=== PATIENT | female | born 1955 | race Caucasian/White ===

== ENCOUNTER 2019-10-25 08:11 | Emergency (ER) | payer BC, SELFPAY ==
[2019-10-25 08:15] VITALS: BP 106/31; PULSE 74; RESP 18; TEMP 37.1; O2SAT 98
--- NOTE | 2019-10-25 08:25 | ED.GENADUL_ITS ---
Discharge Plan Disposition Patient Disposition: HOME Condition: Stable Discharge Details Chief Complaint: Headache Clinical Impression: Sinusitis Primary Care Provider: Erica Chappell ED Provider: Robert Gallegos Home Meds and New Rx's Prescriptions: New doxycycline hyclate 100 mg tablet 100 mg PO BID Qty: 14 RF: 0 Continued mometasone [Nasonex] 17 GM spray,non-aerosol 2 spry Inhalation DAILY RF: 0 citalopram 40 MG tablet 40 mg PO DAILY RF: 0 simvastatin 20 MG tablet 2 tab PO QPM RF: 0 cimetidine 800 MG tablet 800 mg PO DAILY RF: 0 polyethylene glycol (bulk) [Polyox WSR-301] 1 GM powder 1 gm PO PRN PRNRF: 0 Vitamin B-2 25 MG tablet 2 tab PO BID RF: 0 cholecalciferol (vitamin D3) 1,000 UNITS tablet 1 tab PO DAILY RF: 0 Symbicort 60 PUFF HFA aerosol inhaler 1 inh Inhalation DAILY RF: 0 Discharge Instructions Instructions: Sinusitis (ED) Additional Instructions: take 1000mg tylenol and 600mg ibuprofen every 6 hours for pain as needed try using a netti pot if no improvement by Thursday start the antibiotic if not better within a week see your primary care provider. If you feel more ill or have severe worsening pain return to the emergency department Medical Decision Making 64 yo female with hx of hld, asthma, who comes in with cc of facial pressure and cough for 5 days. Denies fevers, chills, vomit, rashes. Has pain with percussion over maxillary sinusies, CN II-XII are intact and normal tm's and oropharynx with no restricted neck movements and clear lung sounds. Suspect uri vs sinusitis. Given less than 10 days of symptoms advised her abxx not indicated but will provide her with script to fill only if not improved by Thursday. If not improving after this advised to see pcp and return precautions given Differential Diagnosis Differential Diagnosis: sinusitis, uri, allergies HPI General Mode of arrival: ambulatory . Date/Time Provider Initiated Documentation: 10/25/19 08:13 . Limitations to Documentation: no limitations . Information obtained by: patient . History of Present Illness 64 year old F presents to the emergency department with the chief complaint of face pressure, described as moderate, and is localized to the face. Patient reports no radiation. Patient started experiencing this day(s) (5) and it has been constant. No relieving factors improve symptom(s), No exacerbating factors reported . Patient notes no other symptoms.. Related Data Home Medications Medication Instructions Recorded Confirmed cimetidine 800 mg PO DAILY 04/16/13 10/25/19 citalopram 40 mg PO DAILY 04/16/13 10/25/19 mometasone [Nasonex] 2 spry INHALATION DAILY 04/16/13 11/04/15 polyethylene glycol (bulk) [Polyox 1 gm PO PRN PRN 04/16/13 11/04/15 WSR-301] simvastatin 2 tab PO QPM 04/16/13 10/25/19 Vitamin B-2 2 tab PO BID 10/13/14 10/25/19 cholecalciferol (vitamin D3) 1 tab PO DAILY 10/13/14 10/25/19 Symbicort 1 inh INHALATION DAILY 11/04/15 10/25/19 doxycycline hyclate 100 mg PO BID #14 tab 10/25/19 Previous Rx's Medication Instructions Recorded doxycycline hyclate 100 mg PO BID #14 tab 10/25/19 Allergies Allergy/AdvReac Type Severity Reaction Status Date / Time amoxicillin [Amoxicillin] Allergy Intermediate Hives Unverified 10/25/19 08:18 General Stated Complaint: Headache LIZZY: 4 Review of Systems All systems reviewed & are unremarkable except as noted in HPI and below Constitutional Constitutional: Denies chills, Denies fever(s) and Denies weakness Cardiovascular Cardiovascular: Denies chest pain and Denies dyspnea Respiratory Respiratory: Denies cough and Denies dyspnea Gastrointestinal Gastrointestinal: Denies abdominal pain, Denies nausea and Denies vomiting Musculoskeletal Musculoskeletal: Denies joint swelling Integumentary/Breasts Skin/Breast: Denies rash Neurologic Neurologic: Denies weakness [facility] Social History Smoking/Tobacco Use Status: Never Drug use: Never Do you feel safe at home: Yes Do you feel safe in your relationship?: Yes Exam Const General: no acute distress Orientation: alert HENMT Head: normal to inspection Ears: external ears normal General nose exam: external nose normal Mouth: moist mucous membranes Eyes General: appearance normal, both eyes and all related structures Neck Neck: normal visual inspection Resp Effort & Inspection: normal respiratory effort and able to speak in complete sentences Cardio Rate: regular rate Skin General skin exam: no rashes or lesions noted Neuro General: alert and oriented x3 Extrem General: normal to inspection Psych Mental Status: mental status grossly normal Course Vital Signs Vital signs: Vital Signs Temperature 37.1 C 10/25/19 08:15 Pulse 74 10/25/19 08:15 Respiratory Rate 18 10/25/19 08:15 Blood Pressure 106/31 L 10/25/19 08:15 Pulse Oximetry 98 10/25/19 08:15 Temperature 37.1 C 10/25/19 08:15 Temperature Source Oral 10/25/19 08:15 Pulse 74 10/25/19 08:15 Respiratory Rate 18 10/25/19 08:15 Respiratory Effort 10/25/19 08:19 Blood Pressure 106/31 L 10/25/19 08:15 Blood Pressure Position Sitting 10/25/19 08:15 Pulse Oximetry 98 10/25/19 08:15 Oxygen Delivery Method Room Air 10/25/19 08:15 Oxygen Flow Rate 0 10/25/19 08:15 Pain Level 7 10/25/19 08:15
[2019-10-25] MEDS: Ibuprofen 600 MG TAB PO (08:33)
== END 2019-10-25 08:34 | disposition home or self-care (01) ==
PROVIDERS: Emergency Provider Emergency Medicine; PCP Internal Medicine
DX: J01.00 Acute maxillary sinusitis, unspecified (principal); R05 Cough
CPT/HCPCS: 99283

== ENCOUNTER 2020-08-20 13:13 | Outpatient (CLI) | payer BC, SELFPAY ==
[2020-08-22 20:54] LABS: Patient Race White; SARS-CoV-2 RNA Undetected (Undetected); SARS-CoV-2 Specimen Source Nasal
== END 2020-08-20 13:33 ==
PROVIDERS: PCP Internal Medicine; Visit Provider Internal Medicine
DX: R05 Cough (principal); R50.9 Fever, unspecified; J02.9 Acute pharyngitis, unspecified; R09.81 Nasal congestion
CPT/HCPCS: U0003

== ENCOUNTER 2020-12-13 06:14 | Inpatient (IN) | payer BC, SELFPAY ==
[2020-12-13] VITALS (22 sets, daily range): BP systolic 120–146; BP diastolic 55–101; PULSE 67–78; RESP 16–18; TEMP 36.1–36.6; O2SAT 87–97
--- NOTE | 2020-12-13 06:06 | ED.GENADUL_ITS ---
Discharge Plan Disposition Patient Disposition: [facility] INPATIENT Condition: Stable Discharge Details Clinical Impression: SBO (small bowel obstruction) Primary Care Provider: Erica Chappell ED Provider: Willie Delong Home Meds and New Rx's Prescriptions: No Action mometasone [Nasonex] 17 GM spray,non-aerosol 2 spry Inhalation DAILY RF: 0 citalopram 40 MG tablet 40 mg PO DAILY RF: 0 simvastatin 20 MG tablet 2 tab PO QPM RF: 0 cimetidine 800 MG tablet 800 mg PO DAILY RF: 0 Vitamin B-2 25 MG tablet 2 tab PO BID RF: 0 Medical Decision Making <Davon Nails MD - Last Filed: 12/13/20 07:52> Patient presenting with onset of lower abdominal pain with associated nausea and vomiting this morning. No previous surgeries on her abdomen. Appears to be very uncomfortable. Is tender across lower abdomen but does not have guarding or rebound present. Denies urinary symptoms. IV established and fluids started. Morphine and Zofran given for symptoms. Laboratory studies sent. CT scan of abdomen pelvis ordered. Broad differential for undifferentiated lower abdominal pain middle-aged female including diverticulitis, colitis, volvulus, bowel obstruction, AAA. 07:20 - Patient's laboratory studies are unremarkable. White count normal. Lactic acid normal. Chemistries and LFTs normal. Lipase normal. Urinalysis negative. CT scan pending. 07:45 - CT scan shows small bowel obstruction likely related to adhesions but since no previous surgery consider stricture. Page placed to surgery for admission. NG tube will be placed for patient comfort. Message left for kenyetta nance to give update. Care turned over to oncoming physician, Dr. Delong. Lab Data Lab results reviewed: Yes I reviewed the patient's lab results. <Willie Delong MD - Last Filed: 12/13/20 08:55> Care signed out by Dr. Nails with plan to admit to general surgery. Spoke with Dr. Alvarez, discussed ED present and course. He will admit patient and requests bridging orders be placed to floor - IVF and NG to continous suction. HPI <Davon Nails MD - Last Filed: 12/13/20 07:52> General Mode of arrival: EMS . Date/Time Provider Initiated Documentation: 12/13/20 06:32 . Limitations to Documentation: no limitations . Information obtained by: patient, EMS, RN notes reviewed and old records reviewed . HPI Narrative: Patient presents to the ED by ambulance with onset of lower abdominal pain at about 4 AM. She felt fine last night when she went to bed. She had corn beef and cabbage for dinner. Subsequently woke up this senior svp with pain which is described as constant pressure in her lower abdomen. She has had nausea and at least one episode of vomiting. She has mild chronic low back pain which is unchanged. She denies fever, cough, shortness of breath, chest pain. She has had no difficulty urinating this morning. She has had no diarrhea or at this point. She has no prior surgeries on her abdomen. She arrives very uncomfortable holding her abdomen. Related Data Home Medications Medication Instructions Recorded Confirmed cimetidine 800 mg PO DAILY 04/16/13 10/25/19 citalopram 40 mg PO DAILY 04/16/13 12/13/20 mometasone [Nasonex] 2 spry INHALATION DAILY 04/16/13 12/13/20 simvastatin 2 tab PO QPM 04/16/13 12/13/20 Vitamin B-2 2 tab PO BID 10/13/14 12/13/20 Allergies Allergy/AdvReac Type Severity Reaction Status Date / Time amoxicillin [Amoxicillin] Allergy Intermediate Hives Unverified 10/25/19 08:18 General LIZZY: 4 Review of Systems <Davon Nails MD - Last Filed: 12/13/20 07:52> Narrative: 07/11 Review of Systems completed and is negative except as stated above in HPI (Systems reviewed: Const, Eyes, ENT, Resp, CV, GI, , MSK, Skin, Neuro) PFSH <Davon Nails MD - Last Filed: 12/13/20 07:52> Medical History Anxiety Asthma GERD (gastroesophageal reflux disease) Hypercholesterolemia Surgical History History of surgical procedure sinus surgery wrist surgery Social History Smoking/Tobacco Use Status: Never Smoking risk assessment performed?: Yes Alcohol Intake: never Drug use: Never Substance use type: does not use Do you feel safe at home: Yes Do you feel safe in your relationship?: Yes Exam <Davon Nails MD - Last Filed: 12/13/20 07:52> Narrative Exam Narrative: Const: WDWN female holding lower abdomen. HEENT: NC/AT. Normal facial exam. Eyes: Normal conjunctiva and sclera. Neck: Supple. Trachea midline. Lungs: Normal respiratory effort. Lungs are clear. Cor: RRR without murmur/gallop. Good radial pulses. GI: Soft/ND. Tender to palpation across the lower abdomen but no guarding or rebound. Neuro: A+O x 3. Normal speech, mentation, gait. Cranial nerves II - XII grossly intact. No gross motor or sensory deficit. Ext: No C/C/E. Skin: Warm and dry without rash. Sign Out <Davon Nails MD - Last Filed: 12/13/20 07:52> Sign Out Data: Sign Out Comment: Signed out to oncoming physician, Dr. Delong, who will discuss with surgery for admission. Last updated by Davon Nails MD at 12/13/20 07:53
[2020-12-13 06:36] LABS: Bilirubin Negative (Negative); Blood Negative (Negative); Clarity Sl Cloudy (Clear); Glucose Negative (Negative); Ketones Negative (Negative); Leukocyte Esterase Negative (Negative); Nitrite Negative (Negative); Specific Gravity 1.025 (1.005-1.025); Urobilinogen 0.2 EU/dL (Up TO 0.2); pH 8.5 (5-8)
[2020-12-13] MEDS: Ondansetron 4 MG/2 ML VIAL IVP ×2 (06:41→17:22)
[2020-12-13] MEDS: MORPHine 10 MG/ML VIAL 4 MG IVP (06:41)
[2020-12-13 06:42] LABS: Lactate 1.3 mmol/L (0.6-1.4)
[2020-12-13 06:43] LABS: Abs Immature Grans 0.05 10^3/uL (0.0-0.06); Absolute Basophil Count 0.06 10^3/uL (0.0-0.2); Absolute Eosinophil Count 0.35 10^3/uL (0.0-0.7); Absolute Neutrophil Count 5.08 10^3/uL (1.2-6.7); Basophils % 0.9; HCT 37.7 % (36.0-46.0); HGB 12.5 g/dL (11.2-15.7); Immature Grans % 0.7; Lymphocytes % 14.4; MCH 31.1 pg (27.0-33.0); MCHC 33.2 % (32.0-36.0); MCV 93.8 fL (80-95); MPV 9.9 fL (8.0-11.0); Monocytes % 5.8; Neutrophils % 73.2; Nucleated RBC 0 %; Platelet Count 239 10^3/uL (130-400); RBC 4.02 10^6/uL (3.93-5.22); RDW 12.3 % (11.7-14.6); RDW-SD 42.9 fL; WBC 6.94 10^3/uL (4.4-10.8)
[2020-12-13] MEDS: Lactated Ringers 1,000 ML 1000 ML IV (06:48)
[2020-12-13 06:54] LABS: Lipase 148 U/L (73-393); Magnesium 2.2 mg/dL (1.8-2.4)
[2020-12-13 06:59] LABS: ALT 24 U/L (14-59); AST 24 U/L (15-37); Albumin 3.9 g/dL (3.4-5.0); Alkaline Phosphatase 82 U/L (46-116); BUN 23 mg/dL (7-18); Bilirubin, Total 0.5 mg/dL (0.2-1.0); CREATININE 0.9 mg/dL (0.55-1.02); Calcium 9.3 mg/dL (8.5-10.1); Chloride 105 mmol/L (98-107); Glucose 133 mg/dL (74-106); Potassium 3.8 mmol/L (3.5-5.1); Sodium 140 mmol/L (136-145); Total Protein 7.5 g/dL (6.4-8.2)
[2020-12-13] MEDS: Omnipaque 350 MG/ML 100 ML BTL IJ (07:06)
[2020-12-13] MEDS: Normal Saline Flush 10 ML SYR IVP ×4 (07:07→17:22)
[2020-12-13] MEDS: Normal Saline - Diluent 50 ML VIAL IV (07:07)
--- NOTE | 2020-12-13 07:16 | DI.CT_ITS ---
EXAM: CT ABDOMEN PELVIS W CLINICAL HISTORY: low abd pain/vomiting. TECHNIQUE: Imaging Protocol: Axial computed tomography images with coronal and sagittal reformatted images were created and reviewed CONTRAST MATERIAL: Intravenous: Omnipaque 100cc Oral: None COMPARISON: No exams were available for comparison FINDINGS: VISUALIZED LUNG BASES: No nodules nor pleural effusions evident. Large hiatal hernia noted ABDOMEN: There is no ascites. LIVER: There are no obvious focal hepatic lesions evident . GALLBLADDER/BILIARY: No obvious gallbladder pathology. CBD is not dilated. PANCREAS: No evidence of pancreatic mass nor dilatation of the pancreatic duct. SPLEEN: Spleen is not enlarged. No obvious intrasplenic lesions. Splenic and portal veins are paten t. ADRENALS: There are no significant adrenal masses. KIDNEYS:There is a cyst in the lateral cortex of the left kidney which measures 10 x 11 millimeters.. No other focal renal findings. No hydronephrosis. No hydroureter. . ABDOMINAL AORTA: Abdominal aorta is not enlarged. LYMPH NODES:There is no retroperitineal nor paraaortic adenopathy. ABDOMINAL WALL/GI: No evidence of significant anterior abdominal wall hernia. There are multiple abnormal dilated small bowel loops ranging up to 3 cm diameter.. The colon is mos tly collapsed. Distal small bowel loops appear collapsed. The transition point appears to be at the terminal ileum level. This is best seen on the coronal images. PELVIS: GI: No evidence of appendicitis.No evidence of sigmoid diverticulitis. LYMPH NODES: There is no intrapelvic nor inguinal adenopathy. REPRODUCTIVE: Age-appropriate URINARY BLADDER: No calculi nor obvious masses evident OSSEOUS: No significant osseous lesions. Mild degenerative anterolisthesis of L5 upon S1. IMPRESSION: 1. There is a small bowel obstruction. The transition point appears to be at the level of the termin al ileum. Stricture versus adhesion. Colon is collapsed. Prominent hiatal hernia noted. 2. Small benign cysts left kidney. No other focal renal findings. 4. RADIATION DOSE DELIVERED: 877.68mGy.cm Total DLP DATA REPOSITORY: All CT scans at this facility are submitted to the National Radiology Data Registry (NRDR) Dose Index Registry (DIR) with the [employer] (ACR). RADIATION OPTIMIZATION: All CT scans at this facility use at least one of these dose optimization te chniques: automated exposure control; mA and/or kV adjustment per patient size (includes targeted exa ms where dose is matched to clinical indication); or iterative reconstruction.
--- NOTE | 2020-12-13 07:31 | DI.VRAD_ITS ---
PROCEDURE INFORMATION: Exam: CT Abdomen And Pelvis With Contrast Exam date and time: 12/13/2020 7:14 AM Age: 65 years old Clinical indication: Abdominal pain; Localized; Lower; Patient HX: Low abdomen pain/vomiting TECHNIQUE: Imaging protocol: Computed tomography of the abdomen and pelvis with contrast. Radiation optimization: All CT scans at this facility use at least one of these dose optimization techniques: automated exposure control; mA and/or kV adjustment per patient size (includes targeted exams where dose is matched to clinical indication); or iterative reconstruction. COMPARISON: No relevant prior studies available. FINDINGS: Mediastinal space: Moderate hiatal hernia. Liver: Normal. No mass. Gallbladder and bile ducts: Normal. No calcified stones. No ductal dilation. Pancreas: Normal. No ductal dilation. Spleen: Normal. No splenomegaly. Adrenal glands: Normal. No mass. 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 Stomach and bowel: Dilated loops of proximal small bowel are noted measuring up to 3 cm with a collapsed appearance of distal small bowel loops. Findings are compatible with a small bowel obstruction. Consider adhesions a likely etiology. Equivocal thickened loops of small bowel distal to the small bowel obstruction are noted. These may reflect a nonspecific enteritis. Therefore differential for the obstruction in addition to adhesions includes small bowel stricture. Portions of the colon are thick-walled which may reflect artifact related to underdistention versus a nonspecific colitis, either infectious or inflammatory. Appendix: No evidence of appendicitis. Intraperitoneal space: Unremarkable. No free air. No significant fluid collection. Vasculature: Unremarkable. No abdominal aortic aneurysm. Lymph nodes: Unremarkable. No enlarged lymph nodes. Urinary bladder: Unremarkable as visualized. Reproductive: Unremarkable as visualized. Bones/joints: Unremarkable. No acute fracture. Soft tissues: Unremarkable. IMPRESSION: 1. Moderate hiatal hernia. 2. Small bowel obstruction. 3. Equivocal thickened loops of small bowel distal to the small bowel obstruction are noted. These may reflect a nonspecific enteritis. Therefore differential for the obstruction in addition to adhesions includes small bowel stricture. 4. Portions of the colon are thick-walled which may reflect artifact related to underdistention versus a nonspecific colitis, either infectious or inflammatory. Dictated and Authenticated by: William Roblero MD. Ordering:MARISOL Mays MD
[2020-12-13] MEDS: Lidocaine 2% Jelly 6 ML SYR (08:13)
[2020-12-13] MEDS: Lidocaine 2% Viscous 15 ML CUP (08:13)
[2020-12-13] MEDS: Lactated Ringers 1,000 ML 125 ML IV ×2 (09:25→17:22)
[2020-12-13 09:27] LABS: Source Nasal/Nares
--- NOTE | 2020-12-13 11:05 | HPE_ITS ---
Date of service: 12/13/20 Time of Service: 10:15 Assessment and Plan Assessment and plan (1) SBO (small bowel obstruction): Start date: 12/13/20 Status: Acute Assessment and plan: NGT to continuous suction, flush regularly. Will take AXR in AM to assess bowel gas pattern, no surgical intervention at this point. pain control as needed (2) Asthma: Status: Chronic Assessment and plan: continue nasonex Qualifiers: Asthma severity: unspecified severity Asthma persistence: unspecified Asthma complication type: uncomplicated Qualified Code(s): J45.909 - Unspecified asthma, uncomplicated (3) Sinusitis: Status: Resolved Qualifiers: Sinusitis location: unspecified location Chronicity: chronic Qualified Code(s): J32.9 - Chronic sinusitis, unspecified History of Present Illness History of Present Illness Chief Complaint: abdominal pain, nausea, vomiting Narrative: patient c/o lower abdominal pain. began in earnest this morning. wavelike, cramping, severe at its worst. associated with nausea and vomiting, and a full feeling. vomiting did not make it worse. Last BM this morning. went to the ER shortly after she started experiencing symptoms. one prior history years ago. no surgical history. last colonoscopy within 3-4 years, clean. CT shows SBO. Review of Systems Constitutional Constitutional: Denies body ache(s), Denies fever(s), Denies frequent falls, Denies headache(s) and Denies poor appetite Eyes Eyes: Denies change in vision and Denies loss of vision ENT Ears, Nose, Mouth, and Throat: Denies headache(s) Comments: s/p sinus surgery Cardiovascular Cardiovascular: Denies chest pain, Denies edema and Denies dyspnea Respiratory Respiratory: Denies cough, Denies hemoptysis and Denies dyspnea Gastrointestinal Gastrointestinal: Reports abdominal pain, Reports nausea and Reports vomiting Genitourinary Genitourinary: Denies difficulty voiding and Denies dysuria Musculoskeletal Musculoskeletal: Denies deformity and Denies arthralgias Neurologic Neurologic: Denies frequent falls, Denies headache(s), Denies lack of coordination and Denies loss of vision Psychiatric Psychiatric: Reports anxiety and Denies depression Hematologic/Lymphatic Hematologic/Lymphatic: Denies easy bleeding and Denies easy bruising [facility] Medical History Anxiety Asthma GERD (gastroesophageal reflux disease) Hypercholesterolemia Surgical History History of surgical procedure sinus surgery wrist surgery Social History Smoking/Tobacco Use Status: Never Smoking risk assessment performed?: Yes Alcohol Intake: never Drug use: Never Substance use type: does not use Do you feel safe at home: Yes Do you feel safe in your relationship?: Yes Meds Home Medications and Allergies Allergies Allergy/AdvReac Type Severity Reaction Status Date / Time amoxicillin [Amoxicillin] Allergy Intermediate Hives Unverified 10/25/19 08:18 Home Medications Medication Instructions Recorded Confirmed Type cimetidine 800 mg PO DAILY 04/16/13 10/25/19 History citalopram 40 mg PO DAILY 04/16/13 12/13/20 History mometasone [Nasonex] 2 spry INHALATION DAILY 04/16/13 12/13/20 History simvastatin 2 tab PO QPM 04/16/13 12/13/20 History Vitamin B-2 2 tab PO BID 10/13/14 12/13/20 History Exam Narrative Exam Narrative: NAD RRR S1S2 CTA B S/ND/TTP Lower abdomen R>L no rebound, no guarding + tympani No mass/hernia Mucous membranes moist no jaundice/icterus NGT in place, flushes and returns Results Labs Result diagrams: 12/13/20 06:30 12/13/20 06:30 Labs: Laboratory Results - last 24 hr 12/13/20 12/13/20 12/13/20 06:22 06:30 06:30 WBC RBC Hgb Hct MCV MCH MCHC RDW Plt Count MPV Immature Gran % Neutrophils % Lymphocytes % Monocytes % Eosinophils % Basophils % Nucleated RBC % Absolute Neutrophils Absolute Lymphocytes Absolute Monocytes Absolute Eosinophils Absolute Basophils VBG Lactate Sodium 140 Potassium 3.8 Chloride 105 Carbon Dioxide 27.0 Anion Gap 8.0 BUN 23 H Creatinine 0.9 Estimated GFR/1.73 m2 >= 60.00 Glucose 133 H Calcium 9.3 Magnesium 2.2 Total Bilirubin 0.5 AST 24 ALT 24 Alkaline Phosphatase 82 Total Protein 7.5 Albumin 3.9 Lipase 148 Urine Color Yellow Urine Clarity Sl cloudy Urine pH 8.5 H Ur Specific [place] 1.025 Urine Protein Negative Urine Ketones Negative Urine Blood Negative Urine Nitrite Negative Urine Bilirubin Negative Urine Urobilinogen 0.2 Ur Leukocyte Esterase Negative Urine Glucose Negative COVID-19 Source 12/13/20 12/13/20 12/13/20 06:30 06:30 09:20 WBC 6.94 RBC 4.02 Hgb 12.5 Hct 37.7 MCV 93.8 MCH 31.1 MCHC 33.2 RDW 12.3 Plt Count 239 MPV 9.9 Immature Gran % 0.7 Neutrophils % 73.2 Lymphocytes % 14.4 Monocytes % 5.8 Eosinophils % 5.0 Basophils % 0.9 Nucleated RBC % 0 Absolute Neutrophils 5.08 Absolute Lymphocytes 1.00 L Absolute Monocytes 0.40 Absolute Eosinophils 0.35 Absolute Basophils 0.06 VBG Lactate 1.3 Sodium Potassium Chloride Carbon Dioxide Anion Gap BUN Creatinine Estimated GFR/1.73 m2 Glucose Calcium Magnesium Total Bilirubin AST ALT Alkaline Phosphatase Total Protein Albumin Lipase Urine Color Urine Clarity Urine pH Ur Specific [place] Urine Protein Urine Ketones Urine Blood Urine Nitrite Urine Bilirubin Urine Urobilinogen Ur Leukocyte Esterase Urine Glucose COVID-19 Source Nasal/nares Last Vital Signs Temp 97.0 F L 12/13/20 10:14 Pulse 77 12/13/20 10:14 Resp 18 12/13/20 10:14 BP 138/74 12/13/20 10:14 Pulse Ox 95 12/13/20 10:14 COVID-19 Screening Have you, or household traveled for leisure in last 14 days?: No Had IN PERSON contact w/suspected or confirmed C-19 person: No
[2020-12-13 11:34] LABS: COVID-19 PCR Negative (Negative)
[2020-12-13] MEDS: Enoxaparin 40 MG/0.4 ML SYR SC (11:55)
[2020-12-13] MEDS: MORPHine 4 MG/ML SYR IM/IV ×3 (11:56→23:38)
--- NOTE | 2020-12-14 | DI.RAD_ITS ---
EXAM: 2D digital imaging was performed. CLINICAL HISTORY: ngt adjustment. COMPARISON: CR XR ABDOMEN FLAT UPRIGHT from 12/14/2020 TECHNIQUE: Supine views of the abdomen performed. FINDINGS: The endotracheal tube has been advanced which now projects arm projects within the body of the stomac h. Heart size is normal. The lung bases are clear. A hiatal hernia is again noted. Are mildly dil ated bowel loops, not significantly changed. IMPRESSION: Nasogastric tube projects in the body of the stomach. Mildly dilated small bowel loops persist. DATA REPOSITORY: RADIATION DOSE DELIVERED:
[2020-12-14] MEDS: Lactated Ringers 1,000 ML 125 ML IV ×4 (00:18→23:37)
[2020-12-14] MEDS: Ondansetron 4 MG/2 ML VIAL IVP ×2 (04:05→13:18)
[2020-12-14 05:00] VITALS: BP 156/79; PULSE 70; RESP 17; TEMP 36.6; O2SAT 95
--- NOTE | 2020-12-14 07:00 | DI.RAD_ITS ---
EXAM: 2D digital imaging was performed. CLINICAL HISTORY: assess SBO. COMPARISON: CT CT ABDOMEN PELVIS W from 12/13/[address] ABDOMEN PELVIS W from 12/13/2020 TECHNIQUE: Supine views of the abdomen performed. FINDINGS: The nasogastric tube is positioned within the hiatal hernia. The lung bases are clear. No free air is seen. There are air-fluid levels on the upright view. The findings appear improved when compared with the previous exam. IMPRESSION: 1. Some improvement in small bowel obstruction. Nasogastric tube is positioned within the hiatal her axel. DATA REPOSITORY: RADIATION DOSE DELIVERED:
[2020-12-14 07:09] LABS: Abs Immature Grans 0.01 10^3/uL (0.0-0.06); Absolute Basophil Count 0.02 10^3/uL (0.0-0.2); Absolute Eosinophil Count 0.03 10^3/uL (0.0-0.7); Absolute Lymphocyte Count 0.56 10^3/uL (1.2-3.4); Absolute Monocyte Count 0.57 10^3/uL (0.1-0.8); Absolute Neutrophil Count 6.75 10^3/uL (1.2-6.7); Basophils % 0.3; Eosinophils % 0.4; HCT 37.1 % (36.0-46.0); HGB 12.5 g/dL (11.2-15.7); Immature Grans % 0.1; Lymphocytes % 7.1; MCH 30.9 pg (27.0-33.0); MCHC 33.7 % (32.0-36.0); MCV 91.8 fL (80-95); MPV 9.9 fL (8.0-11.0); Monocytes % 7.2; Neutrophils % 84.9; Nucleated RBC 0 %; Platelet Count 228 10^3/uL (130-400); RBC 4.04 10^6/uL (3.93-5.22); RDW 12.3 % (11.7-14.6); RDW-SD 42.2 fL; WBC 7.94 10^3/uL (4.4-10.8)
[2020-12-14 07:19] LABS: Anion Gap 6.3 mmol/L (3-11); BUN 10 mg/dL (7-18); CO2 29.7 mmol/L (21.0-32.0); CREATININE 0.8 mg/dL (0.55-1.02); Calcium 9.2 mg/dL (8.5-10.1); Chloride 98 mmol/L (98-107); Glucose 109 mg/dL (74-106); Potassium 3.9 mmol/L (3.5-5.1); Sodium 134 mmol/L (136-145)
[2020-12-14 08:10] VITALS: BP 132/75; PULSE 65; RESP 18; TEMP 37.2; O2SAT 96
--- NOTE | 2020-12-14 11:20 | W.PM.PROGNOT ---
Date of Service Date of service: 12/14/20 Time of Service: 09:20 Assessment and Plan Assessment and plan (1) SBO (small bowel obstruction): Status: Acute Assessment and plan: NGT found on Xray to be coiled in hiatal hernia, likely contributing to her continued symptoms, though her gas pattern was improved. NGT pulled back and inserted further, with return of several hundres CC of bilious material. additional xray ordered. continue NG decompression and await return of bowel funciton. Subjective Subjective Patient reports: nausea and vomiting Interval history since last seen: better pain, but + N/V overnight. Exam Narrative Exam Narrative: NAD RRR S1S2 CTA B Softly distended, mild tenderness, improved. no rebound/guarding Objective Last Vital Signs Temp 99.0 F 12/14/20 08:10 Pulse 65 12/14/20 08:10 Resp 18 12/14/20 08:10 BP 132/75 12/14/20 08:10 Pulse Ox 96 12/14/20 08:10 Laboratory Results - last 24 hr 12/13/20 12/14/20 12/14/20 09:20 06:50 06:50 WBC 7.94 RBC 4.04 Hgb 12.5 Hct 37.1 MCV 91.8 MCH 30.9 MCHC 33.7 RDW 12.3 Plt Count 228 MPV 9.9 Immature Gran % 0.1 Neutrophils % 84.9 Lymphocytes % 7.1 Monocytes % 7.2 Eosinophils % 0.4 Basophils % 0.3 Nucleated RBC % 0 Absolute Neutrophils 6.75 H Absolute Lymphocytes 0.56 L Absolute Monocytes 0.57 Absolute Eosinophils 0.03 Absolute Basophils 0.02 Sodium 134 L Potassium 3.9 Chloride 98 Carbon Dioxide 29.7 Anion Gap 6.3 BUN 10 D Creatinine 0.8 Estimated GFR/1.73 m2 >= 60.00 Glucose 109 H Calcium 9.2 SARS-CoV-2 (PCR) Negative
[2020-12-14] MEDS: Enoxaparin 40 MG/0.4 ML SYR SC (13:19)
--- NOTE | 2020-12-14 14:33 | CHAPLAIN ---
Karin was sitting up in bed when I visited. She said she is starting to feel better. She's has similar issues before, but not this bad, she said. She's relieved not to have visitors, as she said she'd like to stay comfortable and rest. I will continue to visit.
[2020-12-14 16:21] VITALS: BP 135/71; PULSE 73; RESP 18; TEMP 37.8; O2SAT 95
[2020-12-14 17:40] VITALS: BP 138/79; PULSE 74; RESP 18; TEMP 36.6; O2SAT 95
--- NOTE | 2020-12-14 19:09 | INITIAL_ITS ---
- If Service Date Differs Date of service: 12/14/20 Time of Service: 19:09 Care Management Initial Assess REASON FOR HOSPITALIZATION:: SBO PAST MEDICAL HISTORY/PAST SURGICAL HISTORY:: Medical History. Anxiety. Asthma. GERD (gastroesophageal reflux disease). Hypercholesterolemia. Surgical History. History of surgical procedure. sinus surgery. wrist surgery PREVIOUS FUNCTIONAL STATUS/SOCIAL/FAMILY SUPPORTS:: Karin lives in [place] with her , Osmar. They do not have children, but have a Sudhir Tzu dog at home. 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 Her sister in law lives nearby and is identified as a support. She is idependent at baseline. CURRENT FUNCTIONAL STATUS:: Karin was lying in bed when CM met with her. She has an NG tube in place to attempt to resolve her SBO with non surgical intervention. She stated that she is comfortable, and is happy to relax and not watch TV. CM offered cart items, which she politely declined. She was pleasant and engaged in conversation. She reported that per MD, they would re asses her daily to determine her discharge plan. CM will continue to follow. ADVANCE DIRECTIVES:: None on file. CM will offer forms. Has patient been provided with info about the portal/API?: Yes Did the patient sign up for the portal?: No CODE STATUS:: Full Code INSURANCE COVERAGE / FINANCIAL ISSUES:: BCBS CURRENT HOME/COMMUNITY SERVICES/EQUIPMENT:: No current services or equipment. PRIMARY CARE PHYSICIAN:: Erica Chappell POTENTIAL DISCHARGE NEEDS:: Follow up appointments PATIENT/FAMILY EDUCATION NEEDS:: Review discharge instructions, discussion of self care needs and goals of care. ANTICIPATED BARRIERS TO DISCHARGE:: None identified. TRANSPORTATION:: Via private vehicle by . PLAN:: Anticipate Karin will return home with no services once she is medically cleared. She will follow up with her PCP and discharge plan of care. Her will drive her home via private vehicle. CM will continue to follow.
[2020-12-14 23:19] VITALS: BP 146/80; PULSE 76; RESP 17; TEMP 37.1; O2SAT 94
[2020-12-15 03:15] VITALS: BP 154/79; PULSE 69; RESP 16; TEMP 36.4; O2SAT 95
[2020-12-15] MEDS: Lactated Ringers 1,000 ML 125 ML IV ×3 (07:19→23:24)
[2020-12-15 07:26] VITALS: BP 140/70; PULSE 75; RESP 16; TEMP 36.5; O2SAT 94
[2020-12-15 07:49] LABS: Abs Immature Grans 0.01 10^3/uL (0.0-0.06); Absolute Basophil Count 0.02 10^3/uL (0.0-0.2); Absolute Eosinophil Count 0.04 10^3/uL (0.0-0.7); Absolute Lymphocyte Count 0.61 10^3/uL (1.2-3.4); Absolute Monocyte Count 0.54 10^3/uL (0.1-0.8); Absolute Neutrophil Count 4.59 10^3/uL (1.2-6.7); Basophils % 0.3; Eosinophils % 0.7; HCT 37.3 % (36.0-46.0); HGB 12.6 g/dL (11.2-15.7); Immature Grans % 0.2; Lymphocytes % 10.5; MCH 30.9 pg (27.0-33.0); MCHC 33.8 % (32.0-36.0); MCV 91.4 fL (80-95); MPV 9.9 fL (8.0-11.0); Monocytes % 9.3; Nucleated RBC 0 %; Platelet Count 235 10^3/uL (130-400); RBC 4.08 10^6/uL (3.93-5.22); RDW 12.4 % (11.7-14.6); RDW-SD 41.2 fL; WBC 5.81 10^3/uL (4.4-10.8)
[2020-12-15 07:59] LABS: Anion Gap 7.5 mmol/L (3-11); BUN 11 mg/dL (7-18); CO2 29.5 mmol/L (21.0-32.0); CREATININE 0.8 mg/dL (0.55-1.02); Calcium 8.7 mg/dL (8.5-10.1); Chloride 100 mmol/L (98-107); Glucose 85 mg/dL (74-106); Potassium 3.6 mmol/L (3.5-5.1); Sodium 137 mmol/L (136-145)
--- NOTE | 2020-12-15 10:56 | CMPROGNOTE_ITS ---
Care Management Progress Note S/O: Awaiting guidance from MD on plan of care at this time. Karin continues to be closely monitored and treated conservatively at this time; undetermined if she will require surgical intervention. She is only permitted ice chips at this time; NG tube remains in place. CM continues to follow. A: 65 year old female admitted to [facility] 12/13/20 for SBO. P: Anticipate Karin will return home with no services once she is medically cleared. She will follow up with her PCP and discharge plan of care. Her will drive her home via private vehicle. CM will continue to follow.
[2020-12-15 11:16] VITALS: BP 111/62; PULSE 77; RESP 16; TEMP 36.6; O2SAT 95
[2020-12-15] MEDS: Enoxaparin 40 MG/0.4 ML SYR SC (12:44)
--- NOTE | 2020-12-15 13:22 | W.PM.PROGNOT ---
Date of Service Date of service: 12/15/20 Time of Service: 10:29 Assessment and Plan Assessment and plan (1) SBO (small bowel obstruction): Status: Acute Assessment and plan: 1) Continue NGT 2) pain control PRN 3) flush regularly 4) await return of bowel function Subjective Subjective Patient reports: feels better, pain is less and no flatus Interval history since last seen: pain and distension much improved after NGT manipulated yesterday. No flatus yet, but no nausea. Exam Narrative Exam Narrative: NAD RRR S1S2 CTA B S/ND/NT NGT with bilious output, flushes and returns easily Objective Last Vital Signs Temp 97.9 F 12/15/20 11:16 Pulse 77 12/15/20 11:16 Resp 16 12/15/20 11:16 BP 111/62 12/15/20 11:16 Pulse Ox 95 12/15/20 11:16 Laboratory Results - last 24 hr 12/15/20 12/15/20 07:31 07:31 WBC 5.81 RBC 4.08 Hgb 12.6 Hct 37.3 MCV 91.4 MCH 30.9 MCHC 33.8 RDW 12.4 Plt Count 235 MPV 9.9 Immature Gran % 0.2 Neutrophils % 79.0 Lymphocytes % 10.5 Monocytes % 9.3 Eosinophils % 0.7 Basophils % 0.3 Nucleated RBC % 0 Absolute Neutrophils 4.59 Absolute Lymphocytes 0.61 L Absolute Monocytes 0.54 Absolute Eosinophils 0.04 Absolute Basophils 0.02 Sodium 137 Potassium 3.6 Chloride 100 Carbon Dioxide 29.5 Anion Gap 7.5 BUN 11 Creatinine 0.8 Estimated GFR/1.73 m2 >= 60.00 Glucose 85 Calcium 8.7
[2020-12-15 15:39] VITALS: BP 138/84; PULSE 81; RESP 18; TEMP 37.4; O2SAT 96
[2020-12-15] MEDS: Ondansetron 4 MG/2 ML VIAL IVP (17:37)
[2020-12-15] MEDS: MORPHine 4 MG/ML SYR IM/IV (19:50)
[2020-12-15] MEDS: Normal Saline Flush 10 ML SYR IVP (19:51)
[2020-12-15 19:52] VITALS: BP 143/78; PULSE 80; RESP 16; TEMP 36.9; O2SAT 95
[2020-12-16] VITALS: BP 129/83; PULSE 75; RESP 18; TEMP 37.3; O2SAT 95
[2020-12-16 04:35] VITALS: BP 131/70; PULSE 79; RESP 16; TEMP 37; O2SAT 95
[2020-12-16] MEDS: Lactated Ringers 1,000 ML 125 ML IV (07:01)
[2020-12-16 07:37] LABS: Abs Immature Grans 0.03 10^3/uL (0.0-0.06); Absolute Basophil Count 0.04 10^3/uL (0.0-0.2); Absolute Eosinophil Count 0.08 10^3/uL (0.0-0.7); Absolute Lymphocyte Count 0.51 10^3/uL (1.2-3.4); Absolute Monocyte Count 0.58 10^3/uL (0.1-0.8); Absolute Neutrophil Count 5.58 10^3/uL (1.2-6.7); Basophils % 0.6; Eosinophils % 1.2; HCT 35.9 % (36.0-46.0); HGB 11.9 g/dL (11.2-15.7); Immature Grans % 0.4; Lymphocytes % 7.5; MCH 31.3 pg (27.0-33.0); MCHC 33.1 % (32.0-36.0); MCV 94.5 fL (80-95); MPV 10.1 fL (8.0-11.0); Monocytes % 8.5; Neutrophils % 81.8; Nucleated RBC 0 %; Platelet Count 222 10^3/uL (130-400); RDW 12.1 % (11.7-14.6); RDW-SD 42.3 fL; WBC 6.82 10^3/uL (4.4-10.8)
[2020-12-16 07:40] VITALS: BP 112/73; PULSE 76; RESP 18; TEMP 37.1; O2SAT 97
[2020-12-16 07:51] LABS: Anion Gap 10.4 mmol/L (3-11); BUN 15 mg/dL (7-18); CO2 25.6 mmol/L (21.0-32.0); CREATININE 0.7 mg/dL (0.55-1.02); Calcium 8.1 mg/dL (8.5-10.1); Chloride 101 mmol/L (98-107); Glucose 66 mg/dL (74-106); Potassium 3.4 mmol/L (3.5-5.1); Sodium 137 mmol/L (136-145)
[2020-12-16] MEDS: DEXTROSE 5%-0.45% SALINE 1,000 ML 75 ML IV ×2 (08:48→21:52)
--- NOTE | 2020-12-16 10:47 | PDOC.CMPRO ---
- If Service Date Differs Date of service: 12/16/20 Time of Service: 10:48 Care Management Progress Note S/O: Karin was sitting up in bed when CM met with her. She still had the NG tube but stated that the pain was much better. Later Dr. Alvarez came in and told her there is a chance that the NG tube can be removed tomorrow and Karin can begin with a clear liquid diet. He documented that he would order the NG tube to be clamped at midnight and check for residual at 7am. Karin was in good spirits and engaged easily with CM. A: 65 year old female admitted to [facility] 12/13/20 for SBO. P: Anticipate Karin will return home with no services once she is medically cleared. She will follow up with her PCP and discharge plan of care. Her will drive her home via private vehicle. CM will continue to follow.
[2020-12-16 11:37] VITALS: BP 140/67; PULSE 80; RESP 18; TEMP 37.1; O2SAT 96
[2020-12-16] MEDS: Enoxaparin 40 MG/0.4 ML SYR SC (12:14)
--- NOTE | 2020-12-16 13:30 | PHACLINREV_ITS ---
Pharmacy Admission Review - Admission Clinical Review (Last Reviewed 12/13/20 @ 06:09 by Davon Nails MD) SBO (small bowel obstruction) (Acute) amoxicillin [Amoxicillin] Allergy (Intermediate, Unverified 10/25/19 08:18) Hives Height 5 ft 1 in Weight 63.503 kg - Renal Dosing Renal Dosing: BUN 15 mg/dL (7-18) 12/16/20 06:45 Creatinine 0.7 mg/dL (0.55-1.02) 12/16/20 06:45 Medications needing adjustments: Reviewed (Crcl ~53.6 mL/min current meds okay.) - Anticoagulation Anticoagulation: Hgb 11.9 g/dL (11.2-15.7) 12/16/20 06:45 Hct 35.9 % (36.0-46.0) L 12/16/20 06:45 Plt Count 222 10^3/uL (130-400) 12/16/20 06:45 Creatinine 0.7 mg/dL (0.55-1.02) 12/16/20 06:45 DVT Prohphylaxis: Reviewed Medications: Enoxaparin Therapeutic Anticoagulation: N/A - Opiate Usage Evaluate Pain Scale/Pains Meds: Reviewed Scheduled Bowel Reg ordered if on Opiates?: No (MDA aware) - Relevant Labs Sodium 137 mmol/L (136-145) 12/16/20 06:45 Potassium 3.4 mmol/L (3.5-5.1) L 12/16/20 06:45 Chloride 101 mmol/L (98-107) 12/16/20 06:45 Magnesium 2.2 mg/dL (1.8-2.4) 12/13/20 06:30 Electrolytes, C-Reactive P, ESR: Reviewed (Will mention K+ to provider.) - DM Control DM Control: Glucose 66 mg/dL (74-106) L 12/16/20 06:45 Finger Stick Blood Glucose 69 Finger Stick Blood Glucose 69 Insulin Dosing: Reviewed (IVF with dextrose ordered this morning.) - Heart Failure/RI EF%, RHONDA's, B-Blockers, Diuretics: N/A - BP Control BP Control: Blood Pressure 140/67 Blood Pressure 112/73 Blood Pressure 131/70 If elevated: N/A (BP within normal limits so far today.) - Qtc Review If Elevated: N/A - IV to PO Switch IV Medications: Reviewed - Home Meds Home Med List reviewed: Intervened (Home med list in [facility] dosen't match external med history. Will ask PCPs office about med list tomorrow.) Relevent Home Meds Not ordered & why?: Only mometasone from pts home med list is currently ordered. - Current meds Current Medication Order Review: Intervened (Discontinued DI meds, already had been given.) - Comments Comments/Follow Ups: Continue to watch VS, BG, K+, labs, and for med changes (IV to PO, home meds ordered).
[2020-12-16 15:20] VITALS: BP 162/81; PULSE 80; RESP 18; TEMP 36.6; O2SAT 94
--- NOTE | 2020-12-16 15:36 | W.PM.PROGNOT ---
Date of Service Date of service: 12/16/20 Time of Service: 14:14 Assessment and Plan Assessment and plan (1) SBO (small bowel obstruction): Status: Acute Assessment and plan: 1) clamp NGT at midnight, check 7AM residual 2) AXR tomorrow 3) if clamping trial and xray go well, may be able to d/c NGT and start clear liquids Subjective Subjective Patient reports: feels better, flatus and bowel movement Interval history since last seen: no pain Exam Narrative Exam Narrative: NAD RRR S1S2 CTA B S/ND/NT NGT flushes and returns Objective Last Vital Signs Temp 98.8 F 12/16/20 11:37 Pulse 80 12/16/20 11:37 Resp 18 12/16/20 11:37 BP 140/67 12/16/20 11:37 Pulse Ox 96 12/16/20 11:37 Laboratory Results - last 24 hr 12/16/20 12/16/20 06:45 06:45 WBC 6.82 RBC 3.80 L Hgb 11.9 Hct 35.9 L MCV 94.5 D MCH 31.3 MCHC 33.1 RDW 12.1 Plt Count 222 MPV 10.1 Immature Gran % 0.4 Neutrophils % 81.8 Lymphocytes % 7.5 Monocytes % 8.5 Eosinophils % 1.2 Basophils % 0.6 Nucleated RBC % 0 Absolute Neutrophils 5.58 Absolute Lymphocytes 0.51 L Absolute Monocytes 0.58 Absolute Eosinophils 0.08 Absolute Basophils 0.04 Sodium 137 Potassium 3.4 L Chloride 101 Carbon Dioxide 25.6 Anion Gap 10.4 BUN 15 Creatinine 0.7 Estimated GFR/1.73 m2 >= 60.00 Glucose 66 L Calcium 8.1 L
[2020-12-16 20:30] VITALS: BP 132/73; PULSE 78; RESP 18; TEMP 37; O2SAT 95
[2020-12-16] MEDS: Budesonide/Formoterol 80/4.5 6.9 GM 60 PUFF INH IH (21:33)
[2020-12-17 00:16] VITALS: BP 103/55; PULSE 77; RESP 17; TEMP 37; O2SAT 93
[2020-12-17 03:48] VITALS: BP 124/66; PULSE 71; RESP 17; TEMP 36.8; O2SAT 94
[2020-12-17] MEDS: MORPHine 4 MG/ML SYR IM/IV (04:43)
[2020-12-17] MEDS: Normal Saline Flush 10 ML SYR IVP (04:44)
--- NOTE | 2020-12-17 07:30 | DI.RAD_ITS ---
EXAM: XR ABDOMEN FLAT UPRIGHT CLINICAL HISTORY: SBO. TECHNIQUE: 2D digital imaging was performed. COMPARISON: CR XR ABDOMEN FLAT PLATE from 12/14/2020 FINDINGS: Single AP supine view of the abdomen dated 12/17/2020, compared to 12/14/2020. There is an NG tube in the stomach but it is curled back on itself with its distal tip above the GE j unction this requires repositioning. There infiltrates lung bases and a small right pleural effusion is noted. Possibly related to aspiration. No obvious distention of the stomach. Air-fluid level i n the right side of the abdomen difficult to assess upright view. IMPRESSION: As above. Recommend repositioning the NG-tube and repeat upright x-ray. DATA REPOSITORY: RADIATION DOSE DELIVERED:
[2020-12-17 07:55] VITALS: BP 112/64; PULSE 55; RESP 18; TEMP 37.3; O2SAT 96
[2020-12-17] MEDS: Budesonide/Formoterol 80/4.5 6.9 GM 60 PUFF INH IH ×2 (10:19→20:08)
--- NOTE | 2020-12-17 10:48 | W.PM.PROGNOT ---
Date of Service Date of service: 12/17/20 Time of Service: 10:30 Assessment and Plan Assessment and plan (1) SBO (small bowel obstruction): Status: Acute Assessment and plan: 1) improved, but still with radiographic signs of a lingering obstructive pattern 2) discussed with the patient the options of pulling tube and trialling clears vs waiting one more day 3) will continue suction one more day, and likely pull tube tomorrow Subjective Subjective Patient reports: no flatus and no bowel movement; denies still having pain and nausea Interval history since last seen: No nausea or vomiting, even with clamping trial, but the patient has not has a BM or flatus since yesterday. No pain. Xray still shows some A-F levels. Exam Narrative Exam Narrative: NAD RRR S1S2 CTA S/ND/Mild tenderness in the lower abdomen, no rebound/guarding Abdominal xray shows some air fluid levels, though improved Objective Last Vital Signs Temp 99.1 F 12/17/20 07:55 Pulse 55 L 12/17/20 07:55 Resp 18 12/17/20 07:55 BP 112/64 12/17/20 07:55 Pulse Ox 96 12/17/20 07:55
--- NOTE | 2020-12-17 11:18 | CMPROGNOTE_ITS ---
Care Management Progress Note S/O: Karin was sitting up in bed when CM met with her. Karin was in good spirits and engaged easily with CM. A: 65 year old female admitted to [facility] 12/13/20 for SBO. P: Per MD: 1) improved, but still with radiographic signs of a lingering obstructive pattern 2) discussed with the patient the options of pulling tube and trialling clears vs waiting one more day 3) will continue suction one more day, and likely pull tube tomorrow Anticipate Karin will return home with no services once she is medically cleared. She will follow up with her PCP and discharge plan of care. Her will drive her home via private vehicle. CM will continue to follow.
[2020-12-17 11:20] VITALS: BP 121/77; PULSE 77; RESP 18; TEMP 37.5; O2SAT 94
[2020-12-17] MEDS: Enoxaparin 40 MG/0.4 ML SYR SC (12:08)
--- NOTE | 2020-12-17 13:22 | W.NUTRFU ---
Date of service: 12/17/20 Time of Service: 13:22 Nutritional Follow up NOTE: Pt admitted with SBO with mildly elevated BMI. NPO x 3 days, surgery hoping to advance diet today as feeling better per nursing. Pt is well nourishe, tolerating IV fluids well and should tolerate NPO status for up to 5 days. Will continue to follow. Time Spent in Nutritional Counseling and Treatment: 0
[2020-12-17] MEDS: DEXTROSE 5%-0.45% SALINE 1,000 ML 75 ML IV (14:01)
[2020-12-17 19:35] VITALS: BP 129/74; PULSE 80; RESP 18; TEMP 37.3; O2SAT 95
[2020-12-18] MEDS: DEXTROSE 5%-0.45% SALINE 1,000 ML 75 ML IV (02:17)
[2020-12-18 03:32] VITALS: BP 124/79; PULSE 76; RESP 17; TEMP 36.5; O2SAT 95
--- NOTE | 2020-12-18 05:50 | W.PM.DS.N ---
Date of service: 12/18/20 Time of Service: 06:02 DS: Diagnosis Discharge Diagnosis (1) SBO (small bowel obstruction): Status: Acute Discharge Plan Disposition Patient Disposition: HOME Condition: Stable Discharge Details Reason For Visit: SBO Admit Date/Time: 12/13/20 08:59 Admit Provider: Heath Alvarez Attending Provider: Heath Alvarez Primary Care Provider: Erica Chappell Hospital Course Hospital Course: Patient admited 3.18 with s/sx c/w small bowel obstruction. NGT inserted and patient admitted to surgery. on HD1, xray showed NGT coiled in hiatal hernia, repositioned successfully with with good return. patient kept NPO on suction, as exam improved. by 12/18 patient began having bowel movement/flatus. belly soft, flat, nontender. NGT removed and patient started on clears. D/C'd home. Home Meds and New Rx's Prescriptions: No Action mometasone [Nasonex] 17 GM spray,non-aerosol 2 spry Inhalation DAILY RF: 0 citalopram 40 MG tablet 40 mg PO DAILY RF: 0 simvastatin 20 MG tablet 2 tab PO QPM RF: 0 cimetidine 800 MG tablet 800 mg PO DAILY RF: 0 Vitamin B-2 25 MG tablet 2 tab PO BID RF: 0 Discharge Instructions Additional Instructions: f/u with Dr Cornelius or Rebekah if issues return, or seek ER care. Diet as tolerated. Activity:: Activity as Tolerated Equipment/Supplies:: No Equipment Needed Diet:: As Tolerated Discharge Orders Discharge Orders: Discharge Order (Routine); Ordered 12/18/20 Ordered By: Heath Alvarez DS: Summary Time Spent with Patient providing and/or coordinating discharge services: Less than 30 minutes Status at Discharge Functional status at discharge: independent ambulation Overall status at discharge: patient is back to baseline Mental Status: mental status grossly normal Speech and Movement: speech and movement normal Mood: congruent mood Affect: normal affect Exam Narrative Exam Narrative: NAD RRR S1S2 CTA B S/ND/NT Psych Mental Status: mental status grossly normal Speech and Movement: speech and movement normal Mood: congruent mood Affect: normal affect DS: Data Vitals/I&O Vitals and I&O: Vital Signs Temperature 97.7 F 12/18/20 03:32 Temperature Source Temporal Artery Scan 12/18/20 03:32 Pulse 76 12/18/20 03:32 Pulse Rhythm Regular 12/18/20 03:45 Respiratory Rate 17 12/18/20 03:32 Respiratory Effort Non-Labored 12/18/20 03:45 Respiratory Depth Normal 12/18/20 03:45 Respiratory Pattern Normal 12/18/20 03:45 Blood Pressure 124/79 12/18/20 03:32 Blood Pressure Mean 71 12/13/20 09:31 Blood Pressure Position Supine 12/13/20 06:15 Pulse Oximetry 95 12/18/20 03:32 Oxygen Delivery Method Room Air 12/18/20 03:32 Oxygen Flow Rate 0 12/18/20 03:32 Pain Level 0 12/18/20 03:32 Intake & Output 12/17/20 12/17/20 12/18/20 11:59 23:59 11:59 Intake Total 776.25 / 776.25 0 / 776.25 920 / 920 Output Total 1335 / 3135 1800 / 3135 400 / 400 Balance -558.75 / -2358.75 -1800 / -2358.75 520 / 520 Intake: IV 776.25 / 776.25 0 / 776.25 920 / 920 Output: Gastric Drainage 335 / 535 200 / 535 0 / 0 Right Nare 335 / 535 200 / 535 0 / 0 Urine 1000 / 2600 1600 / 2600 400 / 400 Other: Urine Color Yellow Yellow Yellow Urine Appearance Clear Clear Clear Urine Odor Normal None Strong Voiding Methods Bedside Commode Bedside Commode Bedside Commode [facility] Medical History Anxiety Asthma GERD (gastroesophageal reflux disease) Hypercholesterolemia Surgical History History of surgical procedure sinus surgery wrist surgery Social History Smoking/Tobacco Use Status: Never Smoking risk assessment performed?: Yes Alcohol Intake: never Drug use: Never Substance use type: does not use Do you feel safe at home: Yes Do you feel safe in your relationship?: Yes
[2020-12-18 07:20] VITALS: BP 119/75; PULSE 78; RESP 18; TEMP 37; O2SAT 96
[2020-12-18] MEDS: Budesonide/Formoterol 80/4.5 6.9 GM 60 PUFF INH IH (07:34)
--- NOTE | 2020-12-18 11:00 | PDOC.CMDIS ---
LACE Index Scoring Tool - Questions: Length of Stay (in days): 4 - 6 Acuity (Admit via E.D.?): Yes E.D. Visits: 1 - Answers: Total Score: 8 Risk of Readmission: Low Risk Care Management Discharge Reason for Hospitalization: SBO Discharge Plan: Karin will return home with no services once she is medically cleared. She will follow up with her PCP and discharge plan of care. Her will drive her home via private vehicle. CM will continue to follow. Patient/Family Education Needs: Review discharge instructions, discussion of self care needs and goals of care.
== END 2020-12-18 10:57 | disposition home or self-care (01) | DRG 389 ==
LOC: ER 09:07 → MS 11:15
PROVIDERS: Emergency Medicine; Admitting Provider Surgery; Emergency Provider Student in an Organized Health Care Education/Training Program; PCP Internal Medicine; Visit Provider Surgery
DX: K56.609 Unspecified intestinal obstruction, unspecified as to partial versus complete obstruction (principal); T85.528A Displacement of other gastrointestinal prosthetic devices, implants and grafts, initial encounter; J45.909 Unspecified asthma, uncomplicated; J32.9 Chronic sinusitis, unspecified; F41.9 Anxiety disorder, unspecified; K21.9 Gastro-esophageal reflux disease without esophagitis; E78.00 Pure hypercholesterolemia, unspecified
CPT/HCPCS: 36415; 80048; 80053; 83690; 87635; 94640; 96361; 96374; 96375; 99223; 99232; 99238; 99285; J1650; 74018; 74019; 74177; 81003; 83605; 83735; 85025; J2270; J2405; J3490

== ENCOUNTER 2021-11-09 08:53 | Emergency (ER) | payer BC, SELFPAY ==
[2021-11-09 08:57] VITALS: BP 135/76; PULSE 74; RESP 16; TEMP 36.7; O2SAT 97
--- NOTE | 2021-11-09 09:15 | W.ED.GENAD ---
Discharge Plan Disposition Patient Disposition: HOME Condition: Stable Discharge Details Clinical Impression: Varicose veins of left lower extremity Primary Care Provider: Erica Chappell ED Provider: Romulo Burleson Home Meds and New Rx's Prescriptions: Continued mometasone [Nasonex] 17 GM spray,non-aerosol 2 spry Inhalation DAILY 0RF citalopram 40 MG tablet 40 mg PO DAILY 0RF simvastatin 20 MG tablet 2 tab PO QPM 0RF cimetidine 800 MG tablet 800 mg PO DAILY 0RF Vitamin B-2 25 MG tablet 2 tab PO BID 0RF omeprazole 40 mg capsule,delayed release(DR/EC) 40 mg PO DAILY 0RF albuterol sulfate 90 mcg/actuation HFA aerosol inhaler 2 puff INHALATION PRN PRN0RF budesonide-formoterol [Symbicort] 80-4.5 mcg/actuation HFA aerosol inhaler 2 puff INHALATION BID 0RF estradiol 0.01 % (0.1 mg/gram) cream 1 applic VAGINAL PRN PRN0RF Discharge Instructions Additional Instructions: Your ultrasound does not reveal any signs of DVT. As we discussed, warm compresses every 2 hours for 20 minutes. Jacj-rgj-pnaureu medications such as Tylenol for any discomfort. Please watch for new or worsening symptoms and return to the ER for any concerns. Lastly, please contact your primary care provider on Thursday to discuss your ER visit need for outpatient reevaluation. Medical Decision Making Atraumatic posterior left knee sensation over the past day or 2. Clinically this appears to be bundle varicose vein, but I would like to obtain an ultrasound to rule out superficial phlebitis, DVT, Young's cyst, etc. Clinically she appears well, nontoxic, no evidence of tachycardia or hypoxemia. She denies any fever, chest pain or shortness of breath. I contacted our radiology department and we will be able to obtain an ultrasound of her left lower extremity in approximately 1 hour. Patient is agreeable to awaiting ultrasound. Ultrasound is negative for DVT. We discussed ultrasound findings. She has no additional questions or concerns and is relieved. Standard discharge and return precautions were provided. This documentation was generated using [employer] system, please disregard any oddities of phrase or misspellings. Medical Records Medical records reviewed: Yes I reviewed the patient's medical records. Imaging Data Radiologic Study: Imaging: Ultrasound Radiologist's impression: PROCEDURE INFORMATION: Exam: US Duplex Left Lower Extremity Veins, Limited Exam date and time: 11/09/2021 10:56 AM Age: 66 years old Clinical indication: Pain; Leg, lower; Left TECHNIQUE: Imaging protocol: Real-time Duplex ultrasound of the Left Lower Extremity with 2-D mobley scale, color Doppler flow and spectral waveform analysis with image documentation. Limited exam focused on the left lower extremity veins. COMPARISON: CT ABDOMEN PELVIS W 12/13/2020 7:16 AM FINDINGS: Left deep veins: Unremarkable. The common femoral, femoral, proximal profunda femoral and popliteal veins are patent without thrombus. Normal Doppler waveforms. Normal compressibility and/or augmentation response. Left superficial veins: Unremarkable. Saphenofemoral junction is patent without thrombus. Soft tissues: Unremarkable. IMPRESSION: No evidence of deep vein thrombosis HPI General Date/Time Provider Initiated Documentation: 11/09/21 08:53. Limitations to Documentation: no limitations. Information obtained by: patient. HPI Narrative: This is a 66-year-old female, past medical history of asthma, anxiety, GERD, hyperlipidemia, SBO, presenting to the ER for evaluation of an annoying sensation behind her left knee. Patient reports that began 1-2 nights ago, she used an qlqh-vzn-pkgzokf cream on it thinking it was simply dry or itchy, but this did not help. She noticed a bundle of veins that seem to be slightly raised and irritated. She denies recent illness or trauma. Denies fever, chest pain, shortness of breath, history of DVT or PE, pain or swelling in her calf, numbness, tingling, weakness. She is not anticoagulated. Related Data Home Medications Medication Instructions Recorded Confirmed cimetidine 800 mg tablet 800 mg PO DAILY 04/16/13 11/09/21 citalopram 40 mg tablet 40 mg PO DAILY 04/16/13 11/09/21 mometasone 50 mcg/actuation nasal 2 spry INHALATION DAILY 04/16/13 11/09/21 spray (Nasonex) simvastatin 20 mg tablet 2 tab PO QPM 04/16/13 11/09/21 riboflavin (vitamin B2) 25 mg 2 tab PO BID 10/13/14 11/09/21 tablet (Vitamin B-2) albuterol sulfate 90 mcg/actuation 2 puff INHALATION PRN PRN 11/09/21 11/09/21 aerosol inhaler budesonide-formoterol HFA 80 2 puff INHALATION BID 11/09/21 11/09/21 mcg-4.5 mcg/actuation aerosol inhaler (Symbicort) estradiol 1 applic VAGINAL PRN PRN 11/09/21 11/09/21 omeprazole 40 mg capsule,delayed 40 mg PO DAILY 11/09/21 11/09/21 release Allergies Allergy/AdvReac Type Severity Reaction Status Date / Time amoxicillin [Amoxicillin] Allergy Intermediate Hives Unverified 11/09/21 09:03 General Stated Complaint: Vascular LIZZY: 3 Review of Systems Constitutional Constitutional: Denies fever(s) and Denies weakness Cardiovascular Cardiovascular: Denies chest pain and Denies dyspnea Respiratory Respiratory: Denies cough and Denies dyspnea Musculoskeletal Musculoskeletal: Denies arthralgias, Denies numbness, Denies stiffness and Denies tingling Integumentary/Breasts Skin/Breast: Denies erythema and Denies rash Neurologic Neurologic: Denies numbness, Denies tingling and Denies weakness PFSH All Active Problems (Updated 11/09/21 @ 11:23 by NOMAN Obrien) Varicose veins of left lower extremity (Acute) SBO (small bowel obstruction) (Acute) Hypercholesterolemia (Chronic) GERD (gastroesophageal reflux disease) (Chronic) Asthma (Chronic) Anxiety (Chronic) Surgical History History of surgical procedure sinus surgery wrist surgery Social History Smoking/Tobacco Use Status: Never Smoking risk assessment performed?: Yes Alcohol Intake: never Drug use: Never Substance use type: does not use Do you feel safe at home: Yes Do you feel safe in your relationship?: Yes Exam Const General: cooperative, healthy appearing, comfortable and no acute distress Orientation: alert and awake HENMT Head: normal to inspection, normocephalic and atraumatic Eyes Conjunctivae: conjunctivae normal Neck Neck: normal visual inspection, trachea midline and supple Resp Effort & Inspection: normal respiratory effort and able to speak in complete sentences Auscultation: clear to auscultation bilaterally Cardio Rate: regular rate Rhythm: regular rhythm Skin General skin exam: no rashes or lesions noted Neuro General: patient alert, patient awake, moves all extremities and no focal motor deficits Speech: speech normal Gait: normal gait Motor: muscle tone normal throughout Sensory Exam: no sensory deficits noted Extrem General: full ROM and capillary refill normal Knee images: 1. There is an area of varicose veins. There is no warmth, erythema, tenderness or swelling. Full range of motion. Knee is stable. Normal capillary refill and pedal pulse. Negative Homans' sign. Psych Appearance: grossly normal Mental Status: mental status grossly normal Course Vital Signs Vital signs: Vital Signs Temperature 36.7 C 11/09/21 08:57 Pulse 74 11/09/21 08:57 Respiratory Rate 16 11/09/21 08:57 Blood Pressure 135/76 11/09/21 08:57 Pulse Oximetry 97 11/09/21 08:57 Temperature 36.7 C 11/09/21 08:57 Temperature Source Skin 11/09/21 08:57 Pulse 74 11/09/21 08:57 Respiratory Rate 16 11/09/21 08:57 Blood Pressure 135/76 11/09/21 08:57 Blood Pressure Position Sitting 11/09/21 08:57 Pulse Oximetry 97 11/09/21 08:57 Oxygen Delivery Method Room Air 11/09/21 08:57 Oxygen Flow Rate 0 11/09/21 08:57 Pain Level 4 11/09/21 08:57
[2021-11-09 09:17] VITALS: RESP 16
--- NOTE | 2021-11-09 09:30 | DI.US_ITS ---
Exam(s) US LOWER EXTREMITY VENOUS LT EXAM: US LOWER EXTREMITY VENOUS LT CLINICAL HISTORY: posterior knee swelling TECHNIQUE: Left lower extremity venous ultrasound performed using grayscale, color-flow, and spectra l Doppler analysis. COMPARISON: No exams were available for comparison FINDINGS: The left common femoral, femoral and popliteal veins demonstrate normal compressibility, augmentation , and color Doppler. The posterior tibial veins are patent. The saphenofemoral junction is unremarka ble. There is no evidence of a Young cyst. The soft tissues are unremarkable. IMPRESSION: No DVT. DATA REPOSITORY:
--- NOTE | 2021-11-09 11:17 | DI.VRAD_ITS ---
PROCEDURE INFORMATION: Exam: US Duplex Left Lower Extremity Veins, Limited Exam date and time: 11/09/2021 10:56 AM Age: 66 years old Clinical indication: Pain; Leg, lower; Left TECHNIQUE: Imaging protocol: Real-time Duplex ultrasound of the Left Lower Extremity with 2-D mobley scale, color Doppler flow and spectral waveform analysis with image documentation. Limited exam focused on the left lower extremity veins. COMPARISON: CT ABDOMEN PELVIS W 12/13/2020 7:16 AM FINDINGS: Left deep veins: Unremarkable. The common femoral, femoral, proximal profunda femoral and popliteal veins are patent without thrombus. Normal Doppler waveforms. Normal compressibility and/or augmentation response. Left superficial veins: Unremarkable. Saphenofemoral junction is patent without thrombus. Soft tissues: Unremarkable. IMPRESSION: No evidence of deep vein thrombosis. Dictated and Authenticated by: Kun Elizabeth MD. Ordering:NAVYA Sebastian MD
== END 2021-11-09 11:41 | disposition home or self-care (01) ==
PROVIDERS: Emergency Provider Physician Assistant; PCP Internal Medicine
DX: I83.92 Asymptomatic varicose veins of left lower extremity (principal)
CPT/HCPCS: 99284; 93971; 99283

== ENCOUNTER 2022-05-05 12:54 | Emergency (ER) | payer BC, SELFPAY ==
[2022-05-05] VITALS (40 sets, daily range): BP systolic 95–122; BP diastolic 40–76; PULSE 62–72; RESP 10–23; TEMP 36.7; O2SAT 93–99
[2022-05-05 14:40] LABS: Abs Immature Grans 0.01 10^3/uL (0.0-0.06); Absolute Basophil Count 0.01 10^3/uL (0.0-0.2); Absolute Eosinophil Count 0.38 10^3/uL (0.0-0.7); Absolute Lymphocyte Count 0.92 10^3/uL (1.2-3.4); Absolute Monocyte Count 0.39 10^3/uL (0.1-0.8); Absolute Neutrophil Count 2.97 10^3/uL (1.2-6.7); Basophils % 0.2; Eosinophils % 8.1; HCT 37.2 % (36.0-46.0); HGB 12.4 g/dL (11.2-15.7); Immature Grans % 0.2; Lymphocytes % 19.7; MCH 31.2 pg (27.0-33.0); MCHC 33.3 % (32.0-36.0); MCV 94 fL (80-95); MPV 10.2 fL (8.0-11.0); Monocytes % 8.3; Neutrophils % 63.5; Platelet Count 251 10^3/uL (130-400); RBC 3.98 10^6/uL (3.93-5.22); RDW 12.7 % (11.7-14.6); RDW-SD 43.9 fL; WBC 4.68 10^3/uL (4.4-10.8)
--- NOTE | 2022-05-05 14:45 | DI.CT_ITS ---
Exam(s) CT ABDOMEN PELVIS WO EXAM: CT ABDOMEN PELVIS WO CLINICAL HISTORY: bloating, hx of bowel obstruction. TECHNIQUE: Imaging Protocol: Axial computed tomography images with coronal and sagittal reformatted images were created and reviewed CONTRAST MATERIAL: Intravenous: none Oral: None COMPARISON: CT CT ABDOMEN PELVIS W from 12/13/2020 FINDINGS: VISUALIZED LUNG BASES: Mild infiltrate in the inferior lingular segment of the left lung. Large hiat al hernia again noted. ABDOMEN: There is no ascites. LIVER: There are no obvious focal hepatic lesions evident of this noninfused study. GALLBLADDER/BILIARY: No obvious gallbladder pathology. CBD is not dilated. PANCREAS: No evidence of pancreatic mass nor dilatation of the pancreatic duct. SPLEEN: Spleen is not enlarged. No obvious intrasplenic lesions. ADRENALS: There are no significant adrenal masses. KIDNEYS:There is a 10 x 9 millimeter cyst again noted in lateral cortex left kidney towards the upper pole. There is a nonobstructive punctate calculus in the left kidney measuring approximately 1-2 mi llimeters. No hydronephrosis. No hydroureter. No calculi nor other obvious findings in the urinary bladder.. ABDOMINAL AORTA: Calcified but not enlarged. LYMPH NODES: There is no retroperitoneal nor paraaortic adenopathy. ABDOMINAL WALL: Some fat only containing small umbilical hernia. GI: There is no evidence of bowel obstruction, free air, nor abscess. PELVIS: LYMPH NODES: There is no intrapelvic nor inguinal adenopathy. GI: No evidence of appendicitis.No evidence of sigmoid diverticulitis. URINARY BLADDER: No calculi nor obvious masses evident REPRODUCTIVE: Age-appropriate. OSSEOUS: No significant osseous lesions. Degenerative anterolisthesis of L5 upon S1 again noted IMPRESSION: 1. Large hiatal hernia again noted but no evidence of obvious small bowel obstruction on the present study (as was present on the CT scan of November 2020). 2. Nonobstructive 2 millimeter calculus in left kidney as well as small left kidney cyst measuring ap proximately 1 cm. No hydronephrosis nor hydroureter. 3. No ascites. RADIATION DOSE DELIVERED: 807.75mGy.cm Total DLP DATA REPOSITORY: All CT scans at this facility are submitted to the National Radiology Data Registry (NRDR) Dose Index Registry (DIR) with the [employer] ([employer]). RADIATION OPTIMIZATION: All CT scans at this facility use at least one of these dose optimization te chniques: automated exposure control; mA and/or kV adjustment per patient size (includes targeted exa ms where dose is matched to clinical indication); or iterative reconstruction.
[2022-05-05 14:50] LABS: Lipase 80 U/L (73-393)
[2022-05-05 14:53] LABS: ALT 24 U/L (14-59); AST 24 U/L (15-37); Albumin 3.8 g/dL (3.4-5.0); Alkaline Phosphatase 80 U/L (46-116); Anion Gap 6.9 mmol/L (3-11); BUN 22 mg/dL (7-18); Bilirubin, Total 0.5 mg/dL (0.2-1.0); CO2 29.1 mmol/L (21.0-32.0); CREATININE 0.9 mg/dL (0.55-1.02); Calcium 9.1 mg/dL (8.5-10.1); Chloride 102 mmol/L (98-107); Glucose 84 mg/dL (74-106); Sodium 138 mmol/L (136-145); Total Protein 7.2 g/dL (6.4-8.2)
--- NOTE | 2022-05-05 15:36 | ED.GENADUL_ITS ---
Discharge Plan Disposition Patient Disposition: STILL A PATIENT Condition: Stable Discharge Details Chief Complaint: Abd Prob Primary Care Provider: Erica Chappell ED Provider: Jl Schwarz Home Meds and New Rx's Prescriptions: No Action mometasone [Nasonex] 17 GM spray,non-aerosol 2 spry Inhalation DAILY citalopram 40 MG tablet 40 mg PO DAILY simvastatin 20 MG tablet 2 tab PO QPM cimetidine 800 MG tablet 800 mg PO DAILY Vitamin B-2 25 MG tablet 2 tab PO BID omeprazole 40 mg capsule,delayed release(DR/EC) 40 mg PO DAILY albuterol sulfate 90 mcg/actuation HFA aerosol inhaler 2 puff INHALATION PRN PRN budesonide-formoterol [Symbicort] 80-4.5 mcg/actuation HFA aerosol inhaler 2 puff INHALATION BID estradiol 0.01 % (0.1 mg/gram) cream 1 applic VAGINAL PRN PRN Medical Decision Making 66-year-old female history of prior small bowel obstruction presents with abdominal bloating diarrhea over the past several days denies nausea or vomiting. Abdomen soft nontender nondistended nonperitoneal. Afebrile nontoxic. No active vomiting. Consider gas versus enteritis versus colitis versus early SBO versus ileus. Screening labs and imaging. Patient does not want any analgesia or antiemetics at this time. Disposition pending reassessment and results 16: 00 patient resting comfortably no acute distress labs unremarkable. Awaiting imaging for disposition. HPI General Date/Time Provider Initiated Documentation: 05/05/22 13:40 . HPI Narrative: 66-year-old female history of small bowel obstruction, no surgical intervention, no past surgeries, presents with sensation of bloating, denies nausea vomiting or constipation, had soft stool over the past several days Related Data Home Medications Medication Instructions Recorded Confirmed cimetidine 800 mg tablet 800 mg PO DAILY 04/16/13 05/05/22 citalopram 40 mg tablet 40 mg PO DAILY 04/16/13 05/05/22 mometasone 50 mcg/actuation nasal 2 spry inhalation DAILY 04/16/13 05/05/22 spray (Nasonex) simvastatin 20 mg tablet 2 tab PO QPM 04/16/13 05/05/22 riboflavin (vitamin B2) 25 mg 2 tab PO BID 10/13/14 05/05/22 tablet (Vitamin B-2) albuterol sulfate 90 mcg/actuation 2 puff inhalation PRN PRN 11/09/21 05/05/22 aerosol inhaler budesonide-formoterol HFA 80 2 puff inhalation BID 11/09/21 05/05/22 mcg-4.5 mcg/actuation aerosol inhaler (Symbicort) estradiol 0.01% (0.1 mg/gram) 1 applic vaginal PRN PRN 11/09/21 05/05/22 vaginal cream omeprazole 40 mg capsule,delayed 40 mg PO DAILY 11/09/21 05/05/22 release Allergies Allergy/AdvReac Type Severity Reaction Status Date / Time amoxicillin [Amoxicillin] Allergy Intermediate Hives Unverified 05/05/22 14:10 General Stated Complaint: Abd Prob LIZZY: 3 Review of Systems Narrative: Review of Systems Constitutional: negative Eyes: negative ENT: negative Cardiovascular: negative Respiratory: negative Gastrointestinal: Bloating and diarrhea : negative Musculoskeletal: negative Skin: negative Neurologic: negative Psych: negative PFSH All Active Problems (Updated 12/10/21 @ 00:04 by LOULOU CASAS) SBO (small bowel obstruction) (Acute) Hypercholesterolemia (Chronic) GERD (gastroesophageal reflux disease) (Chronic) Asthma (Chronic) Anxiety (Chronic) Surgical History History of surgical procedure sinus surgery wrist surgery Social History Smoking/Tobacco Use Status: Never Smoking risk assessment performed?: Yes Alcohol Intake: never Drug use: Never Substance use type: does not use Do you feel safe at home: Yes Do you feel safe in your relationship?: Yes Exam Narrative Exam Narrative: Physical Examination General: alert, awake, cooperative, resting comfortably, no acute distress HEENT: normocephalic, atraumatic; PERRL, EOM intact, conjunctiva normal; no nasal discharge; moist mucous membranes, oral and pharyngeal mucosa normal, tolerating secretions Neck: supple, trachea midline; full ROM Chest: normal to inspection Respiratory: normal respiratory effort, speaking in full sentences, clear to auscultation, no wheezing, rales or rhonchi Cardiac: regular rate, regular rhythm, S1S2 intact, no murmurs rubs or gallops GI: abdomen soft, non-tender, non-distended; no palpable mass or hepatosplenomegaly Skin: no lesions, rashes or trauma appreciated Neuro: AAOx3, normal speech, moving all extremities Psych: Appropriate mood and affect Course Vital Signs Vital signs: Vital Signs Temperature 36.7 C 05/05/22 13:21 Pulse 72 05/05/22 13:21 Respiratory Rate 18 05/05/22 13:21 Blood Pressure 119/76 05/05/22 13:21 Pulse Oximetry 94 05/05/22 13:21 Temperature 36.7 C 05/05/22 13:21 Temperature Source Oral 05/05/22 13:21 Pulse 72 05/05/22 13:21 Pulse 67 05/05/22 14:10 Respiratory Rate 19 05/05/22 14:10 Respiratory Effort 05/05/22 13:25 Blood Pressure 119/76 05/05/22 13:21 Blood Pressure Position Sitting 05/05/22 13:21 Pulse Oximetry 97 05/05/22 14:10 Oxygen Delivery Method Room Air 05/05/22 13:21 Oxygen Flow Rate 0 05/05/22 13:21 Pain Level 0 05/05/22 13:21 Lab/Test Results Lab/Test Results: Laboratory Tests Range/Units 05/05/22 05/05/22 05/05/22 14:30 14:30 14:30 WBC (4.4-10.8) 10^3/uL 4.68 RBC (3.93-5.22) 10^6/uL 3.98 Hgb (11.2-15.7) g/dL 12.4 Hct (36.0-46.0) % 37.2 MCV (80-95) fL 94 MCH (27.0-33.0) pg 31.2 MCHC (32.0-36.0) % 33.3 RDW (11.7-14.6) % 12.7 Plt Count (130-400) 10^3/uL 251 MPV (8.0-11.0) fL 10.2 Immature Gran % 0.2 Neutrophils % 63.5 Lymphocytes % 19.7 Monocytes % 8.3 Eosinophils % 8.1 Basophils % 0.2 Nucleated RBC % (0.0-0.3) % 0.0 Absolute Neutrophils (1.2-6.7) 10^3/uL 2.97 Absolute Lymphocytes (1.2-3.4) 10^3/uL 0.92 L Absolute Monocytes (0.1-0.8) 10^3/uL 0.39 Absolute Eosinophils (0.0-0.7) 10^3/uL 0.38 Absolute Basophils (0.0-0.2) 10^3/uL 0.01 Sodium (136-145) mmol/L 138 Potassium (3.5-5.1) mmol/L 4.0 Chloride (98-107) mmol/L 102 Carbon Dioxide (21.0-32.0) mmol/L 29.1 Anion Gap (3-11) mmol/L 6.9 BUN (7-18) mg/dL 22 H Creatinine (0.55-1.02) mg/dL 0.9 Estimated GFR/1.73 m2 (mL/min/1.73m2) >= 60.00 Glucose (74-106) mg/dL 84 Calcium (8.5-10.1) mg/dL 9.1 Total Bilirubin (0.2-1.0) mg/dL 0.5 AST (15-37) U/L 24 ALT (14-59) U/L 24 Alkaline Phosphatase (46-116) U/L 80 Total Protein (6.4-8.2) g/dL 7.2 Albumin (3.4-5.0) g/dL 3.8 Lipase (73-393) U/L 80
[2022-05-05] MEDS: Normal Saline 1,000 ML 1000 ML IV (15:38)
[2022-05-05 16:42] LABS: Bilirubin Negative (Negative); Blood Negative (Negative); Clarity Clear (Clear); Glucose Negative (Negative); Ketones Negative (Negative); Leukocyte Esterase Negative (Negative); Nitrite Negative (Negative); Urobilinogen 0.2 EU/dL (Up TO 0.2)
--- NOTE | 2022-05-05 17:49 | W.ED.GENAD ---
Discharge Plan Disposition Patient Disposition: HOME Condition: Stable Discharge Details Clinical Impression: Gastroenteritis Primary Care Provider: Erica Chappell ED Provider: Tramaine Cash Home Meds and New Rx's Prescriptions: Continued mometasone [Nasonex] 17 GM spray,non-aerosol 2 spry Inhalation DAILY citalopram 40 MG tablet 40 mg PO DAILY simvastatin 20 MG tablet 2 tab PO QPM cimetidine 800 MG tablet 800 mg PO DAILY Vitamin B-2 25 MG tablet 2 tab PO BID omeprazole 40 mg capsule,delayed release(DR/EC) 40 mg PO DAILY albuterol sulfate 90 mcg/actuation HFA aerosol inhaler 2 puff INHALATION PRN PRN budesonide-formoterol [Symbicort] 80-4.5 mcg/actuation HFA aerosol inhaler 2 puff INHALATION BID estradiol 0.01 % (0.1 mg/gram) cream 1 applic VAGINAL PRN PRN Discharge Instructions Instructions: Gastroenteritis (ED) Additional Instructions: Home to rest today. Small, frequent sips of fluids to maintain hydration. [place] diet. Return to the ER for any acute concern. Medical Decision Making [address] Annabel Yu. Please see his note regarding details of initial presentation, exam and plan of care. Patient's laboratories are reassuring. Her CT scan showed no significant acute disease. The patient was improved following fluids and medication. She is stable and appropriate for discharge to home Medical Records Medical records reviewed: Yes I reviewed the patient's medical records. Lab Data Lab results reviewed: Yes I reviewed the patient's lab results. HPI General Date/Time Provider Initiated Documentation: 05/05/22 13:40. Related Data Home Medications Medication Instructions Recorded Confirmed cimetidine 800 mg tablet 800 mg PO DAILY 04/16/13 05/05/22 citalopram 40 mg tablet 40 mg PO DAILY 04/16/13 05/05/22 mometasone 50 mcg/actuation nasal 2 spry inhalation DAILY 04/16/13 05/05/22 spray (Nasonex) simvastatin 20 mg tablet 2 tab PO QPM 04/16/13 05/05/22 riboflavin (vitamin B2) 25 mg 2 tab PO BID 10/13/14 05/05/22 tablet (Vitamin B-2) albuterol sulfate 90 mcg/actuation 2 puff inhalation PRN PRN 11/09/21 05/05/22 aerosol inhaler budesonide-formoterol HFA 80 2 puff inhalation BID 11/09/21 05/05/22 mcg-4.5 mcg/actuation aerosol inhaler (Symbicort) estradiol 0.01% (0.1 mg/gram) 1 applic vaginal PRN PRN 11/09/21 05/05/22 vaginal cream omeprazole 40 mg capsule,delayed 40 mg PO DAILY 11/09/21 05/05/22 release Allergies Allergy/AdvReac Type Severity Reaction Status Date / Time amoxicillin [Amoxicillin] Allergy Intermediate Hives Unverified 05/05/22 14:10 General Stated Complaint: Abd Prob LIZZY: 3 PFSH All Active Problems (Updated 05/05/22 @ 17:52 by Tramaine Cash MD) Gastroenteritis (Acute) SBO (small bowel obstruction) (Acute) Hypercholesterolemia (Chronic) GERD (gastroesophageal reflux disease) (Chronic) Asthma (Chronic) Anxiety (Chronic) Surgical History History of surgical procedure sinus surgery wrist surgery Social History Smoking/Tobacco Use Status: Never Smoking risk assessment performed?: Yes Alcohol Intake: never Drug use: Never Substance use type: does not use Do you feel safe at home: Yes Do you feel safe in your relationship?: Yes Course Vital Signs Vital signs: Vital Signs Temperature 36.7 C 05/05/22 13:21 Pulse 72 05/05/22 13:21 Respiratory Rate 18 05/05/22 13:21 Blood Pressure 119/76 05/05/22 13:21 Pulse Oximetry 94 05/05/22 13:21 Temperature 36.7 C 05/05/22 13:21 Temperature Source Temporal Artery Scan 05/05/22 17:41 Pulse 66 05/05/22 17:41 Pulse Rhythm Regular 05/05/22 17:41 Pulse Strength Normal 05/05/22 17:41 Pulse 67 05/05/22 14:10 Respiratory Rate 19 05/05/22 17:41 Respiratory Effort 05/05/22 17:41 Respiratory Depth Normal 05/05/22 17:41 Respiratory Pattern Normal 05/05/22 17:41 Blood Pressure 119/59 L 05/05/22 17:41 Blood Pressure Mean 79 05/05/22 17:41 Blood Pressure Position Supine 05/05/22 17:41 Pulse Oximetry 97 05/05/22 17:41 Oxygen Delivery Method Room Air 05/05/22 17:41 Oxygen Flow Rate 0 05/05/22 17:41 Pain Level 0 05/05/22 17:41 Lab/Test Results Lab/Test Results: Laboratory Tests Range/Units 05/05/22 05/05/22 05/05/22 14:30 14:30 14:30 WBC (4.4-10.8) 10^3/uL 4.68 RBC (3.93-5.22) 10^6/uL 3.98 Hgb (11.2-15.7) g/dL 12.4 Hct (36.0-46.0) % 37.2 MCV (80-95) fL 94 MCH (27.0-33.0) pg 31.2 MCHC (32.0-36.0) % 33.3 RDW (11.7-14.6) % 12.7 Plt Count (130-400) 10^3/uL 251 MPV (8.0-11.0) fL 10.2 Immature Gran % 0.2 Neutrophils % 63.5 Lymphocytes % 19.7 Monocytes % 8.3 Eosinophils % 8.1 Basophils % 0.2 Nucleated RBC % (0.0-0.3) % 0.0 Absolute Neutrophils (1.2-6.7) 10^3/uL 2.97 Absolute Lymphocytes (1.2-3.4) 10^3/uL 0.92 L Absolute Monocytes (0.1-0.8) 10^3/uL 0.39 Absolute Eosinophils (0.0-0.7) 10^3/uL 0.38 Absolute Basophils (0.0-0.2) 10^3/uL 0.01 Sodium (136-145) mmol/L 138 Potassium (3.5-5.1) mmol/L 4.0 Chloride (98-107) mmol/L 102 Carbon Dioxide (21.0-32.0) mmol/L 29.1 Anion Gap (3-11) mmol/L 6.9 BUN (7-18) mg/dL 22 H Creatinine (0.55-1.02) mg/dL 0.9 Estimated GFR/1.73 m2 (mL/min/1.73m2) >= 60.00 Glucose (74-106) mg/dL 84 Calcium (8.5-10.1) mg/dL 9.1 Total Bilirubin (0.2-1.0) mg/dL 0.5 AST (15-37) U/L 24 ALT (14-59) U/L 24 Alkaline Phosphatase (46-116) U/L 80 Total Protein (6.4-8.2) g/dL 7.2 Albumin (3.4-5.0) g/dL 3.8 Lipase (73-393) U/L 80 Urine Color (Yellow) Urine Clarity (Clear) Urine pH (5-8) Ur Specific Wallace (1.005-1.025) Urine Protein (Negative) mg/dL Urine Ketones (Negative) mg/dL Urine Blood (Negative) Urine Nitrite (Negative) Urine Bilirubin (Negative) Urine Urobilinogen (Up TO 0.2) EU/dL Ur Leukocyte Esterase (Negative) Urine Glucose (Negative) mg/dL Range/Units 05/05/22 16:11 WBC (4.4-10.8) 10^3/uL RBC (3.93-5.22) 10^6/uL Hgb (11.2-15.7) g/dL Hct (36.0-46.0) % MCV (80-95) fL MCH (27.0-33.0) pg MCHC (32.0-36.0) % RDW (11.7-14.6) % Plt Count (130-400) 10^3/uL MPV (8.0-11.0) fL Immature Gran % Neutrophils % Lymphocytes % Monocytes % Eosinophils % Basophils % Nucleated RBC % (0.0-0.3) % Absolute Neutrophils (1.2-6.7) 10^3/uL Absolute Lymphocytes (1.2-3.4) 10^3/uL Absolute Monocytes (0.1-0.8) 10^3/uL Absolute Eosinophils (0.0-0.7) 10^3/uL Absolute Basophils (0.0-0.2) 10^3/uL Sodium (136-145) mmol/L Potassium (3.5-5.1) mmol/L Chloride (98-107) mmol/L Carbon Dioxide (21.0-32.0) mmol/L Anion Gap (3-11) mmol/L BUN (7-18) mg/dL Creatinine (0.55-1.02) mg/dL Estimated GFR/1.73 m2 (mL/min/1.73m2) Glucose (74-106) mg/dL Calcium (8.5-10.1) mg/dL Total Bilirubin (0.2-1.0) mg/dL AST (15-37) U/L ALT (14-59) U/L Alkaline Phosphatase (46-116) U/L Total Protein (6.4-8.2) g/dL Albumin (3.4-5.0) g/dL Lipase (73-393) U/L Urine Color (Yellow) Yellow Urine Clarity (Clear) Clear Urine pH (5-8) 6.0 Ur Specific Wallace (1.005-1.025) 1.010 Urine Protein (Negative) mg/dL Negative Urine Ketones (Negative) mg/dL Negative Urine Blood (Negative) Negative Urine Nitrite (Negative) Negative Urine Bilirubin (Negative) Negative Urine Urobilinogen (Up TO 0.2) EU/dL 0.2 Ur Leukocyte Esterase (Negative) Negative Urine Glucose (Negative) mg/dL Negative Sign Out Sign Out Data: Sign Out Comment: pending CT abd pelv for bloating r/o SBO v colitis v gas Last updated by Jl Schwarz MD at 05/05/22 16:03
== END 2022-05-05 18:21 | disposition home or self-care (01) ==
PROVIDERS: Emergency Medicine; Emergency Provider Emergency Medicine; PCP Internal Medicine
DX: K52.9 Noninfective gastroenteritis and colitis, unspecified (principal)
CPT/HCPCS: 36415; 80053; 83690; 96360; 99284; 74176; 81003; 85025

== ENCOUNTER 2023-07-04 09:51 | Emergency (ER) | payer BC, SELFPAY ==
--- NOTE | 2023-07-04 10:00 | DI.RAD_ITS ---
Exam(s) XR CHEST 2V PA LATERAL EXAM: XR CHEST 2V PA LATERAL CLINICAL HISTORY: cough TECHNIQUE: 2D digital imaging was performed of the chest. Two images were obtained. PA and lateral views were obtained. COMPARISON: CT CT ABDOMEN PELVIS WO from 05/05/2022 FINDINGS: MEDIASTINUM: There is a large hiatal hernia again seen. HEART: Normal. PULMONARY VASCULATURE: Normal. LUNGS: There is a 1.3 cm opacity in the left costophrenic angle. Small infiltrate is seen in the rig ht lung base which may represent atelectasis or pneumonia. PLEURAL SPACE: No pleural effusion or pneumothorax. BONE:Within normal limits for the patient's age. OTHER FINDINGS:Normal. IMPRESSION: 1. Atelectasis or pneumonia in the right lung base. 2. 1.3 cm opacity to the left of the heart in the left costophrenic angle. CT scan of the chest is r ecommended for further evaluation. Unexpected findings DATA REPOSITORY: RADIATION DOSE DELIVERED:
[2023-07-04 10:01] VITALS: BP 104/74; PULSE 70; RESP 20; TEMP 36.9; O2SAT 99
--- NOTE | 2023-07-04 10:14 | ED.GENADUL_ITS ---
Discharge Plan Disposition Patient Disposition: Home Condition: Good Discharge Details Clinical Impression: Pneumonia Primary Care Provider: Erica Chappell ED Provider: Alba Truong Home Meds and New Rx's Prescriptions: New cefuroxime axetil 500 mg tablet 500 mg PO BID Qty: 10 0RF doxycycline hyclate 100 mg capsule 100 mg PO BID Qty: 10 0RF No Action mometasone [Nasonex] 17 GM spray,non-aerosol 2 spry Inhalation DAILY citalopram 40 MG tablet 40 mg PO DAILY simvastatin 20 MG tablet 2 tab PO QPM cimetidine 800 MG tablet 800 mg PO DAILY Vitamin B-2 25 MG tablet 2 tab PO BID omeprazole 40 mg capsule,delayed release(DR/EC) 40 mg PO DAILY albuterol sulfate 90 mcg/actuation HFA aerosol inhaler 2 puff INHALATION PRN PRN budesonide-formoterol [Symbicort] 80-4.5 mcg/actuation HFA aerosol inhaler 2 puff INHALATION BID estradiol 0.01 % (0.1 mg/gram) cream 1 applic VAGINAL PRN PRN Discharge Instructions Instructions: Pneumonia (ED) Additional Instructions: Take the antibiotics twice a day until they are all gone. Call your primary care doctor today to schedule an appointment to follow up on your visit here. You have a small nodule on your left lung- they will need to follow up on this. Return to the emergency department for new or worsening symptoms. Medical Decision Making 67yo F with hx of asthma, presenting with one month of non-productive cough that started with COVID diagnosis; no acute worsening today or recently. Normal vital signs on arrival. No increased work of breathing; does have mild end expiratory wheeze. No cough during my assessment. Not septic. No tachycardia or hypoxia to suggest PE. PERC negative; would not further pursue pulmonary embolism with d-dimer or CTA. Will treat with albuterol neb here. Given duration of symptoms, will get CXR. CXR independently reviewed, no pneumothorax, slight opacity RLL and nodule LLL, agree with radiology read below. Given age and persistence of symptoms, out of abundance of caution will treat for possible pneumonia with course of PO abx; pt with rash with amoxicillin so will treat with cefuroxime/doxycycline. With reassuring vital signs here and no fever, will not get labs at this time. On reassessment patient reports breathing feels much improved. Advised of incidental finding of lung nodule and instructed to followup with PCP. Discharged home; discharge instructions including return precautions were reviewed with patient who verbalized understanding. All questions were answered and they are in full agreement with the plan. Imaging Data Radiologic Study: Imaging: X-Ray Radiologist's impression: IMPRESSION: Nodular density projecting over the left lung base.? Minimal opacity at the right lung base could represent atelectasis or infection.? Follow-up as clinically warranted. HPI General Mode of arrival: ambulatory . Date/Time Provider Initiated Documentation: 07/04/23 10:11 . Limitations to Documentation: no limitations . Information obtained by: patient . HPI Narrative: 67yo F with hx of asthma, presenting with one month of cough. No acute worsening today. Symptoms started after Covid diagnosis. Seems to get better initially but then worsened again after the first week and has been persistent since then. Mild difficulty breathing, improved with home inhalers. No fevers, chills, rash, nausea, vomiting, chest pain, or other concerns. Mild rhinnorhea and sore throat for the past 3-4 days. No difficutly swallowing. She is otherwise in her usual state of health. Related Data Home Medications Medication Instructions Recorded Confirmed cimetidine 800 mg tablet 800 mg PO DAILY 04/16/13 07/04/23 citalopram 40 mg tablet 40 mg PO DAILY 04/16/13 07/04/23 mometasone 50 mcg/actuation nasal 2 spry inhalation DAILY 04/16/13 07/04/23 spray (Nasonex) simvastatin 20 mg tablet 2 tab PO QPM 04/16/13 07/04/23 riboflavin (vitamin B2) 25 mg 2 tab PO BID 10/13/14 07/04/23 tablet (Vitamin B-2) albuterol sulfate 90 mcg/actuation 2 puff inhalation PRN PRN 11/09/21 07/04/23 aerosol inhaler budesonide-formoterol HFA 80 2 puff inhalation BID 11/09/21 07/04/23 mcg-4.5 mcg/actuation aerosol inhaler (Symbicort) estradiol 0.01% (0.1 mg/gram) 1 applic vaginal PRN PRN 11/09/21 07/04/23 vaginal cream omeprazole 40 mg capsule,delayed 40 mg PO DAILY 11/09/21 07/04/23 release cefuroxime axetil 500 mg tablet 500 mg PO BID #10 tabs 07/04/23 doxycycline hyclate 100 mg capsule 100 mg PO BID #10 caps 07/04/23 Previous Rx's Medication Instructions Recorded cefuroxime axetil 500 mg tablet 500 mg PO BID #10 tabs 07/04/23 doxycycline hyclate 100 mg capsule 100 mg PO BID #10 caps 07/04/23 Allergies Allergy/AdvReac Type Severity Reaction Status Date / Time amoxicillin [Amoxicillin] Allergy Intermediate Hives Unverified 05/05/22 14:10 General Stated Complaint: Sorethroat LIZZY: 4 Review of Systems Narrative: see HPI PFSH All Active Problems (Updated 07/04/23 @ 10:46 by Alba Truong MD) Pneumonia (Acute) SBO (small bowel obstruction) (Acute) Hypercholesterolemia (Chronic) GERD (gastroesophageal reflux disease) (Chronic) Asthma (Chronic) Anxiety (Chronic) Surgical History History of surgical procedure sinus surgery wrist surgery Social History Smoking/Tobacco Use Status: Never Smoking risk assessment performed?: Yes Alcohol Intake: never Drug use: Never Substance use type: does not use Do you feel safe at home: Yes Do you feel safe in your relationship?: Yes Exam Narrative Exam Narrative: General: Alert, well appearing, well nourished, in no acute distress. Head: Normocephalic, atraumatic Neck: Trachea midline, Neck supple. ENT: MMM. No oropharygeal lesions or exudate. Cardiac: RRR, no murmurs appreciated Resp: No respiratory distress. Slight end expiratory wheeze. Abd: Non-distended. Extremities: No deformities. No peripheral edema. Neurologic: GCS 15. Moves all extremities freely against gravity Course Vital Signs Vital signs: Vital Signs Temperature 36.9 C 07/04/23 10:01 Pulse 70 07/04/23 10:01 Respiratory Rate 20 07/04/23 10:01 Blood Pressure 104/74 07/04/23 10:01 Pulse Oximetry 99 07/04/23 10:01 Temperature 36.9 C 07/04/23 10:01 Temperature Source Oral 07/04/23 10:01 Pulse 70 07/04/23 10:01 Respiratory Rate 20 07/04/23 10:01 Respiratory Effort Normal 07/04/23 10:02 Blood Pressure 104/74 07/04/23 10:01 Pulse Oximetry 99 07/04/23 10:01 Oxygen Delivery Method Room Air 07/04/23 10:01 Oxygen Flow Rate 0 07/04/23 10:01
[2023-07-04] MEDS: Albuterol 2.5 MG/3 ML INH SOLN VIAL UPD (10:18)
--- NOTE | 2023-07-04 10:33 | DI.VRAD_ITS ---
PROCEDURE INFORMATION: Exam: XR Chest Exam date and time: 07/04/2023 10:25 AM Age: 67 years old Clinical indication: Cough TECHNIQUE: Imaging protocol: Radiologic exam of the chest. Views: 2 views. COMPARISON: No relevant prior studies are available for comparison. FINDINGS: Lungs: 1.3 cm nodular density projecting over the left lung base. Minimal opacity at the right lung base. Pleural spaces: No large pleural effusion seen. Heart/Mediastinum: Hiatal hernia. Bones/joints: Grossly unremarkable. IMPRESSION: Nodular density projecting over the left lung base. Minimal opacity at the right lung base could represent atelectasis or infection. Follow-up as clinically warranted. Dictated and Authenticated by: Lorene Crum MD. Ordering:SAMMIE Willis MD
[2023-07-04 11:14] VITALS: BP 104/57; PULSE 85; RESP 18; O2SAT 98
== END 2023-07-04 11:16 | disposition home or self-care (01) ==
LOC: ER 10:52
PROVIDERS: Emergency Provider Student in an Organized Health Care Education/Training Program; PCP Internal Medicine
DX: J18.9 Pneumonia, unspecified organism (principal); K44.9 Diaphragmatic hernia without obstruction or gangrene
CPT/HCPCS: 94640; 99283; 71046; J7613

== ENCOUNTER 2023-08-03 13:06 | Outpatient (CLI) | payer BC, SELFPAY ==
[2023-08-03 13:29] LABS: Abs Immature Grans 0.02 10^3/uL (0.0-0.06); Absolute Basophil Count 0.04 10^3/uL (0.0-0.2); Absolute Lymphocyte Count 0.98 10^3/uL (1.2-3.4); Absolute Monocyte Count 0.46 10^3/uL (0.1-0.8); Absolute Neutrophil Count 4.19 10^3/uL (1.2-6.7); Basophils % 0.7; HCT 38.4 % (36.0-46.0); HGB 12.6 g/dL (11.2-15.7); Immature Grans % 0.3; Lymphocytes % 16.4; MCH 31.2 pg (27.0-33.0); MCHC 32.8 % (32.0-36.0); MCV 95 fL (80-95); MPV 9.8 fL (8.0-11.0); Monocytes % 7.7; Neutrophils % 69.9; Platelet Count 298 10^3/uL (130-400); RBC 4.04 10^6/uL (3.93-5.22); RDW 13.4 % (11.7-14.6); RDW-SD 47.2 fL; WBC 5.99 10^3/uL (4.4-10.8)
[2023-08-03 13:32] LABS: ESR 20 mm/hr (0-30)
[2023-08-03 14:10] LABS: C-Reactive Protein 0.49 mg/dL (0.0-0.3)
== END 2023-08-03 13:07 | disposition home or self-care (01) ==
LOC: LBO 13:11
PROVIDERS: PCP Internal Medicine; Visit Provider Allergy & Immunology
DX: R05.9 Cough, unspecified (principal)
CPT/HCPCS: 36415; 85652; 85025; 86140

== ENCOUNTER 2023-09-28 13:13 | Emergency (ER) | payer BC, SELFPAY ==
[2023-09-28 13:16] VITALS: BP 106/56; PULSE 86; RESP 18; TEMP 37.7; O2SAT 95
[2023-09-28 13:55] VITALS: BP 106/56; PULSE 86; RESP 18; TEMP 37.7; O2SAT 95
[2023-09-28 13:59] LABS: Abs Immature Grans 0.01 10^3/uL (0.0-0.06); Absolute Basophil Count 0.01 10^3/uL (0.0-0.2); Absolute Eosinophil Count 0.01 10^3/uL (0.0-0.7); Absolute Lymphocyte Count 0.14 10^3/uL (1.2-3.4); Absolute Monocyte Count 0.12 10^3/uL (0.1-0.8); Absolute Neutrophil Count 5.34 10^3/uL (1.2-6.7); Basophils % 0.2; Eosinophils % 0.2; HCT 39.4 % (36.0-46.0); HGB 13.3 g/dL (11.2-15.7); Immature Grans % 0.2; Lymphocytes % 2.5; MCH 30.9 pg (27.0-33.0); MCHC 33.8 % (32.0-36.0); MCV 91 fL (80-95); Monocytes % 2.1; Neutrophils % 94.8; RBC 4.31 10^6/uL (3.93-5.22); RDW 12.4 % (11.7-14.6); RDW-SD 41.8 fL; WBC 5.63 10^3/uL (4.4-10.8)
[2023-09-28] MEDS: Normal Saline 1,000 ML 1000 ML IV (14:01)
--- NOTE | 2023-09-28 14:10 | ED.GENADUL_ITS ---
<Statement entered by Lisa Arriaga NP - 09/29/23 09:29> I was not involved in this patients care HPI <Camelia Woodward NP - Last Filed: 09/28/23 16:01> General Stated Complaint: Nausea/Vomit/Diar Mode of arrival: ambulatory. LIZZY: 3 Date/Time Provider Initiated Documentation: 09/28/23 13:31. Limitations to Documentation: no limitations. Information obtained by: patient, RN notes reviewed and old records reviewed. HPI Narrative: 68-year-old female presents to the ER with a chief complaint of nausea vomiting diarrhea which began last night just before midnight. Patient reports vomiting every 30 minutes with loose stools. Denies any blood or mucus noted in her stool or vomit. She denies any chest pain, abdominal pain or any other associated symptoms. She does endorse headache. Upon my initial examination she reports that her symptoms are somewhat improving. She does have a past medical history of high cholesterol, GERD, small bowel obstruction she denies any history of abdominal surgeries. Denies any dysuria. Related Data Home Medications Medication Instructions Recorded Confirmed cimetidine 800 mg tablet 800 mg PO DAILY 04/16/13 09/28/23 citalopram 40 mg tablet 40 mg PO DAILY 04/16/13 09/28/23 mometasone 50 mcg/actuation nasal 2 spry inhalation DAILY 04/16/13 09/28/23 spray (Nasonex) simvastatin 20 mg tablet 2 tab PO QPM 04/16/13 09/28/23 riboflavin (vitamin B2) 25 mg 2 tab PO BID 10/13/14 09/28/23 tablet (Vitamin B-2) albuterol sulfate 90 mcg/actuation 2 puff inhalation PRN PRN 11/09/21 09/28/23 aerosol inhaler budesonide-formoterol HFA 80 2 puff inhalation BID 11/09/21 09/28/23 mcg-4.5 mcg/actuation aerosol inhaler (Symbicort) estradiol 0.01% (0.1 mg/gram) 1 applic vaginal PRN PRN 11/09/21 09/28/23 vaginal cream omeprazole 40 mg capsule,delayed 40 mg PO DAILY 11/09/21 09/28/23 release polyethylene glycol 3350 17 gram 17 g PO DAILY 09/28/23 09/28/23 oral powder packet (Miralax) prochlorperazine maleate 5 mg 5 mg PO QID PRN #10 tabs 09/28/23 tablet (Compazine) Previous Rx's Medication Instructions Recorded prochlorperazine maleate 5 mg 5 mg PO QID PRN #10 tabs 09/28/23 tablet (Compazine) Allergies Allergy/AdvReac Type Severity Reaction Status Date / Time amoxicillin [Amoxicillin] Allergy Intermediate Hives Unverified 09/28/23 14:11 Review of Systems <Camelia Woodward NP - Last Filed: 09/28/23 16:01> All systems reviewed & are unremarkable except as noted in HPI and below Constitutional Constitutional: Reports headache(s) ENT Ears, Nose, Mouth, and Throat: Reports headache(s) Cardiovascular Cardiovascular: Denies chest pain, Denies edema, Denies leg edema and Denies dyspnea Respiratory Respiratory: Denies dyspnea Gastrointestinal Gastrointestinal: Denies abdominal pain, Denies hematochezia, Denies coffee ground emesis, Reports diarrhea, Reports nausea and Reports vomiting Genitourinary Comments: Denies Dysuria Neurologic Neurologic: Denies behavioral changes and Reports headache(s) Psychiatric Psychiatric: Denies behavioral changes PFSH <Camelia Woodward NP - Last Filed: 09/28/23 16:01> All Active Problems (Updated 09/28/23 @ 16:49 by NOMAN Hanson) Nausea & vomiting (Acute) SBO (small bowel obstruction) (Acute) Hypercholesterolemia (Chronic) GERD (gastroesophageal reflux disease) (Chronic) Asthma (Chronic) Anxiety (Chronic) Surgical History History of surgical procedure sinus surgery wrist surgery Social History Smoking/Tobacco Use Status: Never Smoking risk assessment performed?: Yes Alcohol Intake: never Drug use: Never Substance use type: does not use Do you feel safe at home: Yes Do you feel safe in your relationship?: Yes Exam <Camelia Woodward NP - Last Filed: 09/28/23 16:01> Narrative Exam Narrative: Constitutional: Alert and oriented x3. Appears stated age. Normal body habitus. Head: Normocephalic, no trauma. Eyes: Pupils PERRL, Red reflex noted, EOM's intact. Eyelids symmetrical without lesions, discharge, or swelling. ENT: Bilateral TM's WNL, External ear normal to inspection, no mastoid TTP, swelling, or erythema, Nasal turbinates WNL, no nasal discharge. Normal dentition, Posterior pharynx WNL, no exudate. Chest: RRR, Normal S1, S2, distal pulses intact. Resp: Lungs clear to auscultation bilaterally, no wheezes, rales, or rhonchi. Abdomen: Soft, non-distended, Normoactive bowel sounds all 4 quads. Musculoskeletal: Normal gait, 5/5 strength to all four extremities. Skin: No suspicious rashes or lesions. Capillary refill less than 2 sec. Neurologic: Cranial nerves II-XII intact. Alert and oriented x 3. Motor: No deficits noted. Hematologic/Lymphatic: No ecchymosis, no lymphadenopathy. Course <Camelia Woodward NP - Last Filed: 09/28/23 16:01> Vital Signs Vital signs: Vital Signs Temperature 37.7 C H 09/28/23 13:16 Pulse 86 09/28/23 13:16 Respiratory Rate 18 09/28/23 13:16 Blood Pressure 106/56 L 09/28/23 13:16 Pulse Oximetry 95 09/28/23 13:16 Temperature 37.7 C H 09/28/23 13:55 Temperature Source Tympanic 09/28/23 13:55 Pulse 86 09/28/23 13:55 Respiratory Rate 18 09/28/23 13:55 Respiratory Effort Normal, Non-Labored 09/28/23 13:55 Blood Pressure 106/56 L 09/28/23 13:55 Pulse Oximetry 95 09/28/23 13:55 Oxygen Delivery Method Room Air 09/28/23 13:55 Oxygen Flow Rate 0 09/28/23 13:55 Pain Level 0 09/28/23 13:55 Lab/Test Results Lab/Test Results: Laboratory Tests Range/Units 09/28/23 13:34 Lipase Cancelled Medical Decision Making <Camelia Woodward NP - Last Filed: 09/28/23 16:01> 68-year-old female presents to the ER with a chief complaint of nausea vomiting diarrhea which began last night just before midnight. Patient reports vomiting every 30 minutes with loose stools. Denies any blood or mucus noted in her stool or vomit. She denies any chest pain, abdominal pain or any other associated symptoms. She does endorse headache. Upon my initial examination she reports that her symptoms are somewhat improving. She does have a past medical history of high cholesterol, GERD, small bowel obstruction she denies any history of abdominal surgeries. Denies any dysuria. Workup ordered including CBC, CMP, lipase and Fluvid swab. Liter normal saline. Acetaminophen 1 GM IVPB. CBC shows no leukocytosis, CMP shows anion gap of 12.5 BUN 20 creatinine 1.8 GFR is 80, glucose 111 Fluvid swab is pending at this time. Differential diagnosis includes but not limited to gastroenteritis, diverticulitis, flu COVID, Fluvid negative Care is to be handed off to oncoming provider NOMAN Hanson pending CT abdomen pelvis result and reeval and disposition. Lab Data Lab results reviewed: Yes I reviewed the patient's lab results. Labs: Laboratory Tests Range/Units 09/28/23 09/28/23 09/28/23 13:34 13:37 13:45 WBC (4.4-10.8) 10^3/uL 5.63 RBC (3.93-5.22) 10^6/uL 4.31 Hgb (11.2-15.7) g/dL 13.3 Hct (36.0-46.0) % 39.4 MCV (80-95) fL 91 MCH (27.0-33.0) pg 30.9 MCHC (32.0-36.0) % 33.8 RDW (11.7-14.6) % 12.4 Plt Count (130-400) 10^3/uL MPV (8.0-11.0) fL Immature Gran % 0.2 Neutrophils % 94.8 Lymphocytes % 2.5 Monocytes % 2.1 Eosinophils % 0.2 Basophils % 0.2 Nucleated RBC % (0.0-0.3) % 0.0 Absolute Neutrophils (1.2-6.7) 10^3/uL 5.34 Absolute Lymphocytes (1.2-3.4) 10^3/uL 0.14 L Absolute Monocytes (0.1-0.8) 10^3/uL 0.12 Absolute Eosinophils (0.0-0.7) 10^3/uL 0.01 Absolute Basophils (0.0-0.2) 10^3/uL 0.01 RBC Morphology Normal Sodium (136-145) mmol/L Potassium (3.5-5.1) mmol/L Chloride (98-107) mmol/L Carbon Dioxide (21.0-32.0) mmol/L Anion Gap (3-11) mmol/L BUN (7-18) mg/dL Creatinine (0.55-1.02) mg/dL Est GFR (CKD-EPI 2020) (mL/min/1.73m2) Glucose (74-106) mg/dL Calcium (8.5-10.1) mg/dL Magnesium (1.8-2.4) mg/dL Total Bilirubin (0.2-1.0) mg/dL AST (15-37) U/L ALT (14-59) U/L Alkaline Phosphatase (46-116) U/L Total Protein (6.4-8.2) g/dL Albumin (3.4-5.0) g/dL Lipase Cancelled Urine Color (Yellow) Urine Clarity (Clear) Urine pH (5-8) Ur Specific [place] (1.005-1.025) Urine Protein (Negative) mg/dL Urine Ketones (Negative) mg/dL Urine Blood (Negative) Urine Nitrite (Negative) Urine Bilirubin (Negative) Urine Urobilinogen (Up to 0.2) mg/dL Ur Leukocyte Esterase (Negative) Urine RBC (0-2) HPF Urine WBC (0-5) HPF Ur Epithelial Cells (Negative) HPF Urine Crystals (Negative) HPF Urine Bacteria (Negative) HPF Urine Casts (Negative) LPF Urine Mucus (Negative) Ur Culture Indicated? Urine Glucose (Negative) mg/dL COVID-19 Source Nasopharynx SARS-CoV-2 (PCR) (Negative) Negative Influenza Type A (PCR) (Negative) Negative Influenza Type B (PCR) (Negative) Negative RSV (PCR) (Negative) Negative Range/Units 09/28/23 09/28/23 13:51 15:02 WBC (4.4-10.8) 10^3/uL RBC (3.93-5.22) 10^6/uL Hgb (11.2-15.7) g/dL Hct (36.0-46.0) % MCV (80-95) fL MCH (27.0-33.0) pg MCHC (32.0-36.0) % RDW (11.7-14.6) % Plt Count (130-400) 10^3/uL MPV (8.0-11.0) fL Immature Gran % Neutrophils % Lymphocytes % Monocytes % Eosinophils % Basophils % Nucleated RBC % (0.0-0.3) % Absolute Neutrophils (1.2-6.7) 10^3/uL Absolute Lymphocytes (1.2-3.4) 10^3/uL Absolute Monocytes (0.1-0.8) 10^3/uL Absolute Eosinophils (0.0-0.7) 10^3/uL Absolute Basophils (0.0-0.2) 10^3/uL RBC Morphology Sodium (136-145) mmol/L 139 Potassium (3.5-5.1) mmol/L 4.2 Chloride (98-107) mmol/L 104 Carbon Dioxide (21.0-32.0) mmol/L 22.5 Anion Gap (3-11) mmol/L 12.5 H BUN (7-18) mg/dL 20 H Creatinine (0.55-1.02) mg/dL 0.8 Est GFR (CKD-EPI 2020) (mL/min/1.73m2) 80.71 Glucose (74-106) mg/dL 111 H Calcium (8.5-10.1) mg/dL 9.2 Magnesium (1.8-2.4) mg/dL 2.0 Total Bilirubin (0.2-1.0) mg/dL 0.6 AST (15-37) U/L 26 ALT (14-59) U/L 20 Alkaline Phosphatase (46-116) U/L 77 Total Protein (6.4-8.2) g/dL 7.5 Albumin (3.4-5.0) g/dL 3.7 Lipase 60 Urine Color (Yellow) Dark Yellow Urine Clarity (Clear) Sl Cloudy Urine pH (5-8) 5.5 Ur Specific [place] (1.005-1.025) >= 1.030 H Urine Protein (Negative) mg/dL Negative Urine Ketones (Negative) mg/dL 40 H Urine Blood (Negative) Trace-lysed H Urine Nitrite (Negative) Negative Urine Bilirubin (Negative) Negative Urine Urobilinogen (Up to 0.2) mg/dL 0.2 Ur Leukocyte Esterase (Negative) Negative Urine RBC (0-2) HPF 0-2 Urine WBC (0-5) HPF 0-2 Ur Epithelial Cells (Negative) HPF Rare Urine Crystals (Negative) HPF Negative Urine Bacteria (Negative) HPF Rare Urine Casts (Negative) LPF Negative Urine Mucus (Negative) Trace Ur Culture Indicated? No Urine Glucose (Negative) mg/dL Negative COVID-19 Source SARS-CoV-2 (PCR) (Negative) Influenza Type A (PCR) (Negative) Influenza Type B (PCR) (Negative) RSV (PCR) (Negative) <NOMAN Hanson - Last Filed: 09/28/23 18:17> 68-year-old female presents to the ER with a chief complaint of nausea vomiting diarrhea which began last night just before midnight. Patient reports vomiting every 30 minutes with loose stools. Denies any blood or mucus noted in her stool or vomit. She denies any chest pain, abdominal pain or any other associated symptoms. She does endorse headache. Upon my initial examination she reports that her symptoms are somewhat improving. She does have a past medical history of high cholesterol, GERD, small bowel obstruction she denies any history of abdominal surgeries. Denies any dysuria. Workup ordered including CBC, CMP, lipase and Fluvid swab. Liter normal saline. Acetaminophen 1 GM IVPB. CBC shows no leukocytosis, CMP shows anion gap of 12.5 BUN 20 creatinine 1.8 GFR is 80, glucose 111 Fluvid swab is pending at this time. Differential diagnosis includes but not limited to gastroenteritis, diverticulitis, flu COVID, Fluvid negative Care is to be handed off to oncoming provider NOMAN Hanson pending CT abdomen pelvis result and reeval and disposition. LB: Six 8-year-old female accepted and transition from , nurse practitioner pending CT scan, CT without acute abnormality per radiology interpretation my review Patient reports feeling symptomatically improved after fluids alone, was able to tolerate p.o. challenge, will continue to hydrate at home Compazine as needed for nausea supplied Return precautions reviewed and patient expressed understanding Sign Out <Camelia Woodward NP - Last Filed: 09/28/23 16:01> Sign Out Data: Sign Out Comment: Pending CT abd/Pelvis and most likely discharge home. Here with acute N/V/D resolving upon arrival. Hx SBO. Last updated by Camelia Woodward NP at 09/28/23 15:49 Discharge Plan Disposition Patient Disposition: Home Discharge Details Clinical Impression: Nausea & vomiting Primary Care Provider: Erica Chappell ED Provider: Sarah Peguero Home Meds and New Rx's Prescriptions: New prochlorperazine maleate [Compazine] 5 mg tablet 5 mg PO QID PRNQty: 10 0RF Continued mometasone [Nasonex] 17 GM spray,non-aerosol 2 spry Inhalation DAILY citalopram 40 MG tablet 40 mg PO DAILY simvastatin 20 MG tablet 2 tab PO QPM cimetidine 800 MG tablet 800 mg PO DAILY Vitamin B-2 25 MG tablet 2 tab PO BID omeprazole 40 mg capsule,delayed release(DR/EC) 40 mg PO DAILY albuterol sulfate 90 mcg/actuation HFA aerosol inhaler 2 puff INHALATION PRN PRN budesonide-formoterol [Symbicort] 80-4.5 mcg/actuation HFA aerosol inhaler 2 puff INHALATION BID estradiol 0.01 % (0.1 mg/gram) cream 1 applic VAGINAL PRN PRN polyethylene glycol 3350 [Miralax] 17 gram powder in packet 17 g PO DAILY Discharge Instructions Instructions: Acute Nausea and Vomiting (ED) Additional Instructions: take compazine as needed for nausea and vomiting stay hydrated clear liquid diet as tolerated recheck with pcp in 2-3 days with persistent symptoms Referrals: Erica Chappell [Primary Care Provider] - Discharge Data Discharge Date/Time-TO BE ENTERED AT DEPARTURE: 09/28/23 17:09
[2023-09-28 14:12] LABS: Diff Comment PLT Morph Reviewed; RBC Morphology Normal
[2023-09-28 14:12] LABS: ALT 20 U/L (14-59); AST 26 U/L (15-37); Albumin 3.7 g/dL (3.4-5.0); Alkaline Phosphatase 77 U/L (46-116); Anion Gap 12.5 mmol/L (3-11); BUN 20 mg/dL (7-18); Bilirubin, Total 0.6 mg/dL (0.2-1.0); CO2 22.5 mmol/L (21.0-32.0); CREATININE 0.8 mg/dL (0.55-1.02); Calcium 9.2 mg/dL (8.5-10.1); Chloride 104 mmol/L (98-107); Estimated GFR 80.71 (mL/min/1.73m2); Glucose 111 mg/dL (74-106); Lipase 60 U/L (16-77); Potassium 4.2 mmol/L (3.5-5.1); Sodium 139 mmol/L (136-145); Total Protein 7.5 g/dL (6.4-8.2)
--- NOTE | 2023-09-28 14:15 | DI.CT_ITS ---
Exam(s) CT ABDOMEN PELVIS W EXAM: CT ABDOMEN PELVIS W CLINICAL HISTORY: N/V/D, Hx SBO. TECHNIQUE: Imaging Protocol: Axial computed tomography images with coronal and sagittal reformatted images were created and reviewed CONTRAST MATERIAL: Intravenous: Omnipaque 350 Contrast volume:9 ml Oral: no COMPARISON: CT CT ABDOMEN PELVIS WO from 05/05/2022 FINDINGS: ABDOMEN and PELVIS: Lung Bases: No acute findings. Moderate-sized hiatal hernia. Liver: Normal density. No measurable mass. Gallbladder and biliary tract: No radiodense calculus or dilation. Pancreas: Normal density. No abnormal calcifications or inflammatory process. No evidence of mass. Spleen: Normal. Kidneys: Normal size, contour and axis. No radiodense stones. No obstructive uropathy. No suspicious masses seen. Adrenal glands: No masses seen. Vasculature: Abdominal aorta non-dilated. Soft tissues: Unremarkable. Bladder: No gross wall thickening. No calculi.No focal mass. Bowel: Small-bowel loops mildly fluid filled in the left upper quadrant and low pelvis. No findings t o suggest obstruction. Increased stool right side of the colon and rectum. No bowel wall thickening . Appendix normal. Peritoneal cavity: No ascites. No focal collection or mesenteric inflammatory response. Bones: Unremarkable for age. Reproductive organs: Within normal limits. Lymph nodes: Unremarkable. IMPRESSION:: Mildly dilated fluid-filled loops of small bowel without evidence of obstruction. RADIATION DOSE DELIVERED: Total DLP DATA REPOSITORY: All CT scans at this facility are submitted to the National Radiology Data Registry (NRDR) Dose Index Registry (DIR) with the [employer] (A[employer]). RADIATION OPTIMIZATION: All CT scans at this facility use at least one of these dose optimization te chniques: automated exposure control; mA and/or kV adjustment per patient size (includes targeted exa ms where dose is matched to clinical indication); or iterative reconstruction.
[2023-09-28 14:29] LABS: COVID-19 PCR Negative (Negative); Influenza A PCR Negative (Negative); Influenza B PCR Negative (Negative); RSV PCR Negative (Negative)
[2023-09-28 14:33] LABS: Source Nasopharynx
[2023-09-28] MEDS: Omnipaque 350 MG/ML 100 ML BTL IJ (14:55)
[2023-09-28] MEDS: Normal Saline - Diluent 50 ML VIAL IJ (14:57)
[2023-09-28] MEDS: ACETAMINOPHEN 1,000 MG/100 ML BTL 400 MG IVPB (15:12)
[2023-09-28 15:27] LABS: Bilirubin Negative (Negative); Blood Trace-lysed (Negative); Clarity Sl Cloudy (Clear); Glucose Negative (Negative); Ketones 40 mg/dL (Negative); Leukocyte Esterase Negative (Negative); Nitrite Negative (Negative); Specific Gravity >= 1.030 (1.005-1.025); Urobilinogen 0.2 mg/dL (Up to 0.2); pH 5.5 (5-8)
[2023-09-28 15:33] LABS: Bacteria Rare HPF (Negative); C & S Indicated? No; Casts Negative LPF (Negative); Crystals Negative HPF (Negative); Epithelial Cells Rare HPF (Negative); Mucus Trace (Negative); RBC 0-2 HPF (0-2); WBC 0-2 HPF (0-5)
--- NOTE | 2023-09-28 16:15 | DI.VRAD_ITS ---
PROCEDURE INFORMATION: Exam: CT Abdomen And Pelvis With Contrast Exam date and time: 09/28/2023 3:18 PM Age: 68 years old Clinical indication: Other: N/v/d, HX sbo TECHNIQUE: Imaging protocol: Computed tomography of the abdomen and pelvis with contrast. Contrast material: OMNIPAQUE 350; Contrast volume: 90 ml; Contrast route: INTRAVENOUS (IV); COMPARISON: CT ABDOMEN PELVIS WO 05/05/2022 4:09 PM FINDINGS: Diaphragm: Moderate hiatal hernia. Liver: Normal. No mass. Gallbladder and bile ducts: Normal. No calcified stones. No ductal dilation. Pancreas: Normal. No ductal dilation. Spleen: Normal. No splenomegaly. Adrenal glands: Normal. No mass. Kidneys and ureters: Normal. No hydronephrosis. Unchanged simple cyst in left kidney which does not warrant further surveillance. Stomach and bowel: No bowel obstruction seen. Minor focal dilatation of jejunal loops in the left upper quadrant. Appendix: No evidence of appendicitis. Intraperitoneal space: Unremarkable. No free air. No significant fluid collection. Vasculature: Mild aortic atherosclerotic disease. Lymph nodes: Unremarkable. No enlarged lymph nodes. Urinary bladder: Unremarkable as visualized. Reproductive: Unremarkable as visualized. Bones/joints: Degenerative changes in lower lumbar spine with mild anterolisthesis L5-S1. Soft tissues: Unremarkable. IMPRESSION: No acute findings. Dictated and Authenticated by: Diego Powers MD. Ordering:TREVIN Denise MD
[2023-09-28 16:17] VITALS: BP 110/80; PULSE 83; TEMP 37.3; O2SAT 97
[2023-09-28] MEDS: Prochlorperazine 10 MG TAB PO (16:55)
== END 2023-09-28 17:09 | disposition home or self-care (01) ==
PROVIDERS: Registered Nurse Emergency; Emergency Provider Physician Assistant; PCP Internal Medicine
DX: R11.2 Nausea with vomiting, unspecified (principal); R19.7 Diarrhea, unspecified; Z11.52 Encounter for screening for COVID-19
CPT/HCPCS: 36415; 80053; 83690; 87637; 96361; 96374; 99285; 74177; 81003; 81015; 83735; 85025; 99284; J0131; J3490

== ENCOUNTER 2025-02-17 13:50 | Outpatient (CLI) | payer MEDICARE, SELFPAY ==
[2025-02-17 15:42] LABS: Abs Immature Grans 0.02 10^3/uL (0.0-0.06); Absolute Basophil Count 0.05 10^3/uL (0.0-0.2); Absolute Eosinophil Count 0.21 10^3/uL (0.0-0.7); Absolute Lymphocyte Count 1.02 10^3/uL (1.2-3.4); Absolute Monocyte Count 0.57 10^3/uL (0.1-0.8); Absolute Neutrophil Count 3.25 10^3/uL (1.2-6.7); Eosinophils % 4.1 %; HCT 40.1 % (36.0-46.0); Immature Grans % 0.4 %; Lymphocytes % 19.9 %; MCH 31.3 pg (27.0-33.0); MCHC 32.4 % (32.0-36.0); MCV 96 fL (80-95); MPV 9.8 fL (8.0-11.0); Monocytes % 11.1 %; Neutrophils % 63.5 %; Platelet Count 387 10^3/uL (130-400); RBC 4.16 10^6/uL (3.93-5.22); RDW-SD 46.5 fL; WBC 5.12 10^3/uL (4.4-10.8)
[2025-02-17 16:30] LABS: ALT 36 U/L (14-59); AST 27 U/L (15-37); Alkaline Phosphatase 87 U/L (46-116); Amylase 50 U/L (25-115); Anion Gap 7.7 mmol/L (3-11); BUN 26 mg/dL (7-18); Bilirubin, Total 0.4 mg/dL (0.2-1.0); C-Reactive Protein < 0.50 mg/dL (<or=0.5); CO2 29.3 mmol/L (21.0-32.0); CREATININE 1.1 mg/dL (0.55-1.02); Calcium 10.1 mg/dL (8.5-10.1); Chloride 100 mmol/L (98-107); Estimated GFR 54.73 (mL/min/1.73m2); Glucose 99 mg/dL (74-106); Lipase 45 U/L (<78); Potassium 4.7 mmol/L (3.5-5.1); Sodium 137 mmol/L (136-145); Total Protein 7.5 g/dL (6.4-8.2)
== END 2025-02-17 13:51 | disposition home or self-care (01) ==
LOC: LBO 14:02
PROVIDERS: PCP Internal Medicine; Visit Provider Nurse Practitioner Family
DX: R10.11 Right upper quadrant pain (principal)
CPT/HCPCS: 36415; 80053; 83690; 82150; 85025; 86140

== ENCOUNTER 2025-02-21 01:45 | Outpatient (CLI) | payer MEDICARE, SELFPAY ==
--- NOTE | 2025-02-21 | DI.US_ITS ---
Exam(s) US ABDOMEN LIMITED EXAM: US ABDOMEN LIMITED CLINICAL HISTORY: RUQ ABD PAIN, R10.11,ABNORMAL LFT'S TECHNIQUE: Ultrasound abdomen performed using standard protocol. COMPARISON: CT CT ABDOMEN PELVIS W from 09/28/2023 FINDINGS: LIVER: Normal size. Normalechogenicity. No focal liver lesions are seen.. GALLBLADDER: No evidence of cholelithiasis. No evidence of wall thickening. No pericholecystic fluid identified. ARAIZA'S SIGN: Negative. BILIARY SYSTEM: No intrahepatic or extrahepatic biliary ductal dilation. RIGHT KIDNEY: Normal size. No evidence of renal calculi. No evidence of hydronephrosis. No suspicious renal mass. No cyst identified. PANCREAS: Normal where visualized. ABDOMINAL AORTA AND IVC: Visualized portions normal caliber. ASCITES: None seen. IMPRESSION: Normal sonographic appearance of the right upper quadrant. DATA REPOSITORY:
== END 2025-02-21 02:05 ==
LOC: DI 01:45
PROVIDERS: PCP Internal Medicine; Visit Provider Nurse Practitioner Family
DX: R10.11 Right upper quadrant pain (principal)
CPT/HCPCS: 76705

== ENCOUNTER 2025-07-30 16:45 | Emergency (ER) | payer MEDICARE, SELFPAY ==
[2025-07-30 16:49] VITALS: BP 127/52; PULSE 80; RESP 14; TEMP 36.6; O2SAT 96
--- NOTE | 2025-07-30 16:56 | W.ED.GENAD ---
Discharge Plan Disposition Patient Disposition: Home Condition: Stable Discharge Details Clinical Impression: Allergic reaction Primary Care Provider: Erica Chappell ED Provider: Brayan Prince Home Meds and New Rx's Prescriptions: Continued mometasone [Nasonex] 17 GM spray,non-aerosol 2 spry Inhalation DAILY citalopram 40 MG tablet 40 mg PO DAILY simvastatin 20 MG tablet 2 tab PO QPM cimetidine 800 MG tablet 800 mg PO DAILY riboflavin (vitamin B2) [Vitamin B-2] 25 MG tablet 2 tab PO BID omeprazole 40 mg capsule,delayed release(DR/EC) 40 mg PO DAILY albuterol sulfate 90 mcg/actuation HFA aerosol inhaler 2 puff INHALATION PRN PRN budesonide-formoterol [Symbicort] 80-4.5 mcg/actuation HFA aerosol inhaler 2 puff INHALATION BID polyethylene glycol 3350 [Miralax] 17 gram powder in packet 17 g PO DAILY Discharge Instructions Instructions: Allergic Reaction ED Additional Instructions: You were seen in the emergency department for your rash post amoxicillin days ago, you are definitely still allergic to amoxicillin, you need to be taking any of the [id number] antihistamines like Claritin/Janet/Zyrtec 1-2 times daily as well as famotidine/Pepcid AC 1-2 times daily as these are better than Benadryl for allergic reactions you can take Benadryl before bed to help with sleep, imagine you only need to take these medicines for another couple days before your body metabolizes out the amoxicillin and I do not feel you need steroids at this time, please return for any severe worsening despite treatment. Referrals: Erica Chappell [Primary Care Provider, Medicine] Discharge Data Discharge Date/Time-TO BE ENTERED AT DEPARTURE: 07/30/25 17:16 HPI General Date/Time Provider Initiated Documentation: 07/30/25 16:56. HPI Narrative: 69 year-old female presents to ED today by POV/ambulating with a chief complaint of rash, from amoxicillin- patient was given some doses of amoxicillin by her PCP to see if it was a true allergy, with onset two days ago. Quality described as rash to torso and arms, no radiation to shortness of breath, wheezing, nausea/vomiting, tachycardia, hives. Severity is described as mild. Palliating factors include took 2 Benadryl today with little relief. Provoking factors include nothing specific. Patient not anticoagulated. Related Data Home Medications Medication Instructions Recorded Confirmed cimetidine 800 mg tablet 800 mg PO DAILY 04/16/13 07/30/25 citalopram 40 mg tablet 40 mg PO DAILY 04/16/13 07/30/25 mometasone 50 mcg/actuation nasal 2 spry inhalation DAILY 04/16/13 07/30/25 spray (Nasonex) simvastatin 20 mg tablet 2 tab PO QPM 04/16/13 07/30/25 riboflavin (vitamin B2) 25 mg 2 tab PO BID 10/13/14 07/30/25 tablet (Vitamin B-2) albuterol sulfate 90 mcg/actuation 2 puff inhalation PRN PRN 11/09/21 07/30/25 aerosol inhaler budesonide-formoterol HFA 80 2 puff inhalation BID 11/09/21 07/30/25 mcg-4.5 mcg/actuation aerosol inhaler (Symbicort) omeprazole 40 mg capsule,delayed 40 mg PO DAILY 11/09/21 07/30/25 release polyethylene glycol 3350 17 gram 17 g PO DAILY 09/28/23 07/30/25 oral powder packet (Miralax) Allergies Allergy/AdvReac Type Severity Reaction Status Date / Time amoxicillin (Amoxicillin) Allergy Intermediate Hives Verified 07/30/25 16:52 General Stated Complaint: Allergic LIZZY: 4 Review of Systems All systems reviewed & are unremarkable except as noted in HPI and below Exam Narrative Exam Narrative: GENERAL APPEARANCE: Well-nourished, non-toxic, awake and alert, atraumatic, no acute distress. SKIN: Warm, pink, dry, diffuse miliary rash to abdomen, fairly sparse, tiny macular areas to right dorsal arm HEAD: Normocephalic, atraumatic, normal hair distribution for gender/age. EYES: Normal conjunctiva, no exudates on lids/lashes. ENT: Nares patent, no circumoral cyanosis, no facial swelling, no tongue swelling, no lugwig's angina or angioedema NECK: Supple, trachea midline, painless cervical ROM. LUNGS/CHEST: Lungs CTA bilaterally- no wheezing, non-labored respirations, normal A/P diameter, symmetrical expansion, no chest wall deformity HEART (CV/PV): Regular rate and rhythm without murmur, no peripheral edema, no JVD. ABDOMEN: Soft, non-distended, no guarding. MSK: Normal ROM, no swelling/deformity to bilateral UEs or LEs, moving all extremities without weakness, no cyanosis, spine midline without tenderness, normal curvature. NEURO: Mental Status AAOx4 - alert to person, place, time, events No facial droop, no forehead involvement. Motor: No focal weakness - strength 5/5 in bilateral UEs and LEs, proximal and distal, symmetric. Sensory: sensation intact to light touch globally. Gait normal: patient ambulated without ataxia into ED room. PSYCH: euthymic, cooperative, pleasant, appropriate speech Course Vital Signs Vital signs: Vital Signs Temperature 36.6 C 07/30/25 16:49 Pulse 80 07/30/25 16:49 Respiratory Rate 14 07/30/25 16:49 Blood Pressure 127/52 L 07/30/25 16:49 Pulse Oximetry 96 07/30/25 16:49 Temperature 36.6 C 07/30/25 16:49 Temperature Source Oral 07/30/25 16:49 Pulse 80 07/30/25 16:49 Respiratory Rate 14 07/30/25 16:49 Blood Pressure 127/52 L 07/30/25 16:49 Blood Pressure Position Sitting 07/30/25 16:49 Pulse Oximetry 96 07/30/25 16:49 Oxygen Delivery Method Room Air 07/30/25 16:49 Oxygen Flow Rate 0 07/30/25 16:49 Medical Decision Making This dictation utilizes [id number] dictation software and may contain unedited grammatical errors. 69 year-old female presents to ED today by POV/ambulating with a chief complaint of rash, from amoxicillin- patient was given some doses of amoxicillin by her PCP to see if it was a true allergy, with onset two days ago. Quality described as rash to torso and arms, no radiation to shortness of breath, wheezing, nausea/vomiting, tachycardia, hives. Severity is described as mild. Palliating factors include took 2 Benadryl today with little relief. Provoking factors include nothing specific. Patients' medical history: Penicillin allergy, asthma. Family and social history: Noncontributory. Pertinent exam findings / vital signs include diffuse miliary rash to abdomen, fairly sparse, tiny macular areas to right dorsal arm, no wheezing, no tongue swelling. Differential / pathologies of concern include allergic reaction. Diagnostic studies of: - None. Interventions of: - Added cetirizine p.o. and famotidine p.o, do not feel the patient needs prednisone at this time. ED Course/Assessment/Plan: 61-year-old female was given amoxicillin to see if her listed allergy was still a true allergy for her and developed a rash 2 days ago, she has had no progression to nausea or multisystem complaints or respiratory difficulties or oral swelling since given the initial dose, counseled her on using multiple antihistamines, do not feel she needs prednisone at this time, PCP provider could have likely prophylaxed by providing some of these on standing orders with the possible expected reaction from this trial treatment, patient has no signs of anaphylaxis. Findings not consistent with anaphylaxis. Disposition of allergic reaction. Patient verbalized understanding of the plan and return to ED criteria and engaged in shared decision making. Medical Records Medical records reviewed: Yes I reviewed the patient's medical records. PFSH All Active Problems (Updated 07/30/25 @ 17:04 by NOMAN Marie) Allergic reaction (Acute) SBO (small bowel obstruction) (Acute) Hypercholesterolemia (Chronic) GERD (gastroesophageal reflux disease) (Chronic) Asthma (Chronic) Anxiety (Chronic) Surgical History History of surgical procedure sinus surgery wrist surgery Social History Smoking/Tobacco Use Status: Never Smoking risk assessment performed?: Yes Alcohol Intake: never Drug use: Never Substance use type: does not use Do you feel safe at home: Yes Do you feel safe in your relationship?: Yes
[2025-07-30] MEDS: Famotidine 20 MG TAB PO (17:10)
[2025-07-30] MEDS: Cetirizine 10 MG TAB PO (17:10)
[2025-07-30 17:11] VITALS: BP 127/52; PULSE 80; RESP 14; TEMP 36.6; O2SAT 96
== END 2025-07-30 17:16 | disposition home or self-care (01) ==
PROVIDERS: Emergency Provider Physician Assistant; PCP Internal Medicine
DX: T36.0X5A Adverse effect of penicillins, initial encounter (principal); R21 Rash and other nonspecific skin eruption
CPT/HCPCS: 99283 ×2